=== PATIENT | male | born 1950 | race Caucasian/White ===

== ENCOUNTER 2020-07-06 07:16 | Day surgery (SDC) | payer OTHER ==
[2020-07-02 14:22] LABS: Absolute Lymphocytes (CBC) 1.4 K/uL (0.7-4.9); Basophils % 0.3 % (0-1.3); Lymphocytes % 12.6 % (15.3-44.8); MPV 7.2 fL (7.6-11.3); RBC Red Blood Cell Count 4.37 M/uL (4.33-5.43)
--- NOTE | 2020-07-02 14:31 | RAD REPORT ---
EXAM DESCRIPTION: RAD - Chest Pa And Lat (2 Views) - 07/02/2020 2:14 pm CLINICAL HISTORY: preop Chest pain. COMPARISON: Chest Pa And Lat (2 Views) dated 06/21/2017; Chest Single View dated 11/16/2016; Chest Sing le View dated 08/16/2016; CHEST SINGLE VIEW dated 03/12/2014 FINDINGS: The lungs are clear. The heart is normal in size. No displaced fractures. Sternotomy wires . IMPRESSION: No acute or concerning finding suspected.
[2020-07-02 14:35] LABS: Protime INR 1.04
[2020-07-02 14:36] LABS: Potassium 4.8 mmol/L (3.5-5.1)
[2020-07-06] MEDS ORDERED: NA CHLORIDE 0.9% 500 ML ONE (08:04)
[2020-07-06] MEDS ORDERED: HEPA 1000U/500MLS 2,000 UNIT/1,000 ML BAG IV ONE (08:16)
[2020-07-06] MEDS ORDERED: MIDAZOLAM HCL 2 MG/2 ML INJ ONE (08:16)
[2020-07-06] MEDS ORDERED: FENTANYL CITR 100 MCG/2 ML ONE (08:16)
[2020-07-06] MEDS ORDERED: HEPARIN 5000 UNIT/ML 1 ML VIAL ONE (08:16)
[2020-07-06 08:28] VITALS: TEMP 97
[2020-07-06 11:20] VITALS: O2SAT 97
[2020-07-06 11:21] VITALS: BP 143/75
--- NOTE | 2020-07-06 12:49 | OP ---
Date of Procedure: 07/06/2020 Surgeon: Carl Luna MD Blow Mold Machine Operator: Hilario Hernandes. The patient will remain in the hospital for 2 hours after his Angio-Seal for bedrest. I will see him in the office in the next 2 weeks. Reason For Admission: Abdominal angiogram with runoff. Indication: Claudication and abnormal right arterial Doppler. History Of Present Illness: Mr. Yoon is 70. Has hypertension, diabetes, and dyslipidemia, cl audication, known arterial Doppler that was abnormal 3 years ago, but he had elected to wait for an a ngiogram until his symptoms became more significant. Procedure In Detail: He came into the slab off mill tender today, 07/06/2020 as an outpatient, prepped and drape d in routine sterile fashion. Given Versed and fentanyl for sedation. A 6-Georgian sheath introduced in the right common femoral artery successfully. Angiography there locally showed a 60% to 70% commo n femoral artery stenosis. Angio-Seal was used to close the case. A pigtail catheter was advanced a seth the renals. Abdominal angiogram with runoff revealed patent renal arteries, normal aorta. He h ad a 60% to 70% right common iliac artery stenosis. He had 100% occlusion of both anterior tibial. His posterior tibial was patent bilaterally. Both of his peroneal arteries revealed severe moderate plaquing throughout. There were no complications. Blood Loss: 5 mL. Postoperative Diagnosis: Severe peripheral artery arterial disease below the knee. Plan: Plan is for medical therapy. I will consider low-dose Xarelto and maybe Trental and if his sy mptoms persist, I will send him to Dr. Eric in [place] for a possible vascular intervention below th e knee. NB/MODL Voice ID: [id number] Report ID: [id number]
== END 2020-07-06 11:08 | disposition home or self-care (01) ==
LOC: CCL 07:16
DX: I70.213 Atherosclerosis of native arteries of extremities with intermittent claudication, bilateral legs (principal); I70.92 Chronic total occlusion of artery of the extremities; I25.10 Atherosclerotic heart disease of native coronary artery without angina pectoris; I65.23 Occlusion and stenosis of bilateral carotid arteries; I10 Essential (primary) hypertension; E11.9 Type 2 diabetes mellitus without complications; E78.2 Mixed hyperlipidemia; Z95.1 Presence of aortocoronary bypass graft; Z95.5 Presence of coronary angioplasty implant and graft; Z87.891 Personal history of nicotine dependence; Z88.6 Allergy status to analgesic agent; Z88.8 Allergy status to other drugs, medicaments and biological substances; Z20.822 Contact with and (suspected) exposure to COVID-19; Z82.49 Family history of ischemic heart disease and other diseases of the circulatory system
CPT/HCPCS: 93005; 85025; 80048; 36415; 85610; 82947; 85730; 71046; 36200; 75630; U0003; C1893; C1760; J2250; J3010; J7040; J1644

== ENCOUNTER 2021-01-04 08:18 | Day surgery (SDC) | payer OTHER ==
[2020-12-30 16:15] LABS: Absolute Lymphocytes (CBC) 2.2 K/uL (0.7-4.9); Basophils % 0.9 % (0-1.3); Hematocrit 37.5 % (39.6-49.0); Lymphocytes % 23.9 % (15.3-44.8); MPV 6.4 fL (7.6-11.3); RBC Red Blood Cell Count 4.17 M/uL (4.33-5.43)
[2020-12-30 16:23] LABS: Protime INR 1.03
[2020-12-30 16:32] LABS: Potassium 3.7 mmol/L (3.5-5.1)
--- NOTE | 2020-12-30 16:36 | RAD REPORT ---
EXAM DESCRIPTION: RAD - Chest Pa And Lat (2 Views) - 12/30/2020 4:28 pm CLINICAL HISTORY: Pre Op pending stent placement Chest pain. COMPARISON: Chest Pa And Lat (2 Views) dated 07/02/2020; Chest Pa And Lat (2 Views) dated 06/21/2017; C hest Single View dated 11/16/2016; Chest Single View dated 08/16/2016 FINDINGS: The lungs are emphysematous with notable only in the right apex. The heart is normal in si ze. Changes of prior CABG noted. IMPRESSION: Moderate COPD. The USPSTF recommends annual screening for lung cancer with low-dose CT (LDCT) in adults aged 50 to 8 0 years who have a 20 pack-year smoking history and currently smoke or have quit within the past 15 y ears.
--- NOTE | 2021-01-01 20:42 | EKG ---
Test Date: 2020-12-30 Test Time: 15:58:03 Contracting Officer: ANDERSON MEASUREMENT RESULTS: Intervals: Rate: 78 MT: 138 QRSD: 74 QT: 374 QTc: 426 [place]: P: 72 MT: 138 QRS: 76 T: 58 INTERPRETIVE STATEMENTS: Normal sinus rhythm Normal ECG Compared to ECG 07/02/2020 12:56:06 No significant changes Electronically Signed On 01-01-21 20:35:41 FOOD RUNNER by Carl Luna
[~2021-01-04 08:18] MED LIST: NA CHLORIDE 0.9% 500 ML ONE
[2021-01-04] MEDS ORDERED: HEPA 1000U/500MLS 2,000 UNIT/1,000 ML BAG IV ONE (08:35)
[2021-01-04 09:05] VITALS: TEMP 97.9
[2021-01-04] MEDS ORDERED: FENTANYL CITR 100 MCG/2 ML ONE (10:18)
[2021-01-04] MEDS ORDERED: HEPARIN 5000 UNIT/ML 1 ML VIAL ONE (10:18)
[2021-01-04] MEDS ORDERED: MIDAZOLAM HCL 2 MG/2 ML INJ ONE ×2 (10:18→10:40)
[2021-01-04] MEDS ORDERED: ATROPINE SULF 1 MG/10 ML SYR IV ONE (10:18)
[2021-01-04] MEDS ORDERED: CLOPIDOGREL 75 MG TABLET ONE (11:05)
--- NOTE | 2021-01-04 11:40 | OP ---
Surgeon: Carl Luna MD Senior Linux Unix Engineer: Mr. Keita. Reason For Admission: Right common iliac artery angiogram with primary stent of the external iliac a rtery and common femoral artery on the right. Mr. Yoon has had a history of CABG, peripheral arterial disease, worsening claudication on the right. Procedure In Detail: Brought into the quality assurance/r&d lab technician as an outpatient, prepped and draped in the routine s terile fashion. Given Versed and fentanyl for sedation. A 7-Kyrgyz sheath introduced in the right c ommon femoral artery successfully using the Seldinger technique and 10 cc of Xylocaine. A Wholey wir e was used to cross the lesion successfully. Following that, 2 stents were placed. The angiography showed an 80% stenosis of the right external iliac and common femoral artery on the right. This sten t was 6 x 19 Omnilink stent balloon expandable that were overlapped from the common femora l artery all the way up to the external iliac artery just past the internal iliac artery bifurcation, 0% residual. No complications. Blood Loss: 5 cc. Anesthesia: Total conscious sedation 45 minutes. Postoperative Diagnosis: Peripheral arterial disease, status post successful primary stent of the ri ght external iliac artery and common femoral artery. Plan: Plan is for medical therapy. He is on Plavix. He is on statin. He will stay in the hospital for 2 hours after bedrest. He got an Angio-Seal after the angiography of the groin. He will be here for 2 hours of bedrest, go chelsie e, see me in the office in 2 weeks. JOSE/[place] Voice ID: [id number] Report ID: [id number]
[2021-01-04 14:47] VITALS: BP 139/76; O2SAT 95
== END 2021-01-04 15:25 | disposition home or self-care (01) ==
LOC: CCL 08:18
PROC: 04HH3DZ Insertion of Intraluminal Device into Right External Iliac Artery, Percutaneous Approach (ICD-10-PCS; principal; 2021-01-04)
PROC: 04HK3DZ Insertion of Intraluminal Device into Right Femoral Artery, Percutaneous Approach (ICD-10-PCS; 2021-01-04)
DX: I70.201 Unspecified atherosclerosis of native arteries of extremities, right leg (principal); I25.10 Atherosclerotic heart disease of native coronary artery without angina pectoris; I65.23 Occlusion and stenosis of bilateral carotid arteries; I10 Essential (primary) hypertension; E78.2 Mixed hyperlipidemia; E11.9 Type 2 diabetes mellitus without complications; R09.89 Other specified symptoms and signs involving the circulatory and respiratory systems; Z95.1 Presence of aortocoronary bypass graft; Z95.5 Presence of coronary angioplasty implant and graft; Z87.891 Personal history of nicotine dependence; Z79.02 Long term (current) use of antithrombotics/antiplatelets; Z79.82 Long term (current) use of aspirin; Z88.6 Allergy status to analgesic agent; Z88.8 Allergy status to other drugs, medicaments and biological substances; Z20.822 Contact with and (suspected) exposure to COVID-19; Z82.49 Family history of ischemic heart disease and other diseases of the circulatory system
CPT/HCPCS: 93005; 85025; 80048; 36415; 85610; 82947; 85347 ×2; 85730; 71046; 37226; 37221; U0002; C1893; C1760; C1725; J1644 ×2; J2250 ×2; J3010; J7040

== ENCOUNTER 2022-05-11 22:30 | Observation (INO) | payer OTHER ==
--- OUTSIDE RECORDS SUMMARY | 2022-05-11 22:35 | XMS REPORT | Continuity of Care Document ---
:1950 Author Organization [facility] t Address [address] [facility] [place] [address] Care Team Providers Name Role Phone ENOC DOIZER Primary Care Physician Unavailable Lab, Adc Fam Pob I Attending Clinician Unavailable Julianne Cuellar Attending Clinician JULIANNE MONGE Attending Clinician Unavailable Yovani Eric MD Attending Clinician 3, Mague Attending Clinician Unavailable Rufino Dumont MD Attending Clinician DELMY RODRIGUEZ Attending Clinician Unavailable DELMY RODRIGUEZ Admitting Clinician Unavailable Payers Payer Name Policy Type Policy Number Effective Date Expiration Date S ource [employer] [id number] 2020 00:00:00 Problems Condition Condition Condition Status Onset Resolution Last Treating Co mments Source Name Details Category Date Date Treatment Clinician Date Pseudophak Pseudophak Disease Active B aline ia, both ia, both 10-10 Colleg e eyes eyes 00:00: of 00 Medicin e S/P CABG x S/P CABG x Disease Active B aline 3 3 7-30 College 00:00: of 00 Medicin e Postoperat Postoperat Disease Active [facility]awana anemia tawana anemia 11-18 Laura kes due to due to 00:00: Medical acute acute 00 Center blood loss blood loss Hyperglyce Hyperglyce Disease Active [facility] cal[facility] calvin 11[facility]18 [facility] Hypertensi Hypertensi Disease Active [facility] on, on, 9-28 [facility] essential essential 00:00: Medi sarath 00 Center Hyperlipid Hyperlipid Disease Active [facility] emia emia 11-17 [facility] Center H/O stroke H/O stroke Disease Active [facility] without without 11-17 [facility] residual residual 00:00: Medica l deficits deficits 00 Center HENRY HENRY Disease Active [facility] (obstructi (obstructi 11-17 Laura kes ve sleep ve sleep 00:00: Medica l apnea) apnea) 00 Center Acute Acute Disease Active [facility] pulmonary pulmonary 11-17 [facility] s insufficie insufficie 00:00: Me dical ncy ncy 00 Center following following thoracic thoracic surgery surgery Controlled Controlled Disease Recurre [facility] type 2 type 2 nce 11-17 [facility] diabetes diabetes 00:00: Medica l mellitus mellitus 00 Center with with qa test analyst qa test analyst y y disorder, disorder, without without long-term long-term current current use of use of insulin insulin CAD in CAD in Disease Active [facility] [place] 11-16 [facility] artery artery 00:00: Medical 00 Center OAG (open OAG (open Disease Active [facility] angle angle [address] [place] glaucoma) glaucoma) 00:00: of suspect, suspect, 00 Medici n high risk, high risk, e bilateral bilateral 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 [facility] gland gland 1-23 [place] dysfunctio dysfunctio 00:00: of n (MGD), n (MGD), 00 Medici n bilateral, bilateral, e both upper both upper and lower and lower lids lids Pseudophak Pseudophak Disease Active [facility] ia, right ia, right 09-17 Alejandra ege eye eye 00:00: of Medicin e Pseudophak Pseudophak Disease Active [facility] ia, left ia, left 08-20 Colleg e eye eye 00:00: of 00 Medicin e 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 6-08 [place] cupping cupping 00:00: of 00 Medicin e Allergies, Adverse Reactions, Alerts Allergy Allergy Status Severity Reaction(s) Onset Inactive Treating Comm ents Source Name Type Date Date Clinician Lisinopr Propensi Active Other (See Coughing [facility] il ty to Comments) 08-16 College adverse 00:00: of reaction 00 Medicin s to e drug COLLAGEN DRUG Active Unknown-Cmnt Un orxy INGREDI 06-13 ity of 00:00: [place] 00 [facility] Collagen Propensi Active Unknown - Uni vers ty to See comments 06-13 ity of adverse 00:00: [place] reaction 00 Medical s Branch Potassiu Propensi Active [facility] m Cocoyl ty to 06-13 College Hydrolyz adverse 00:00: of ed reaction 00 Medicin Collagen s to e drug NO KNOWN Allergy Active [facility] Social History Social Habit Start Date Stop Date Quantity Comments Source Exposure to Yes University of SARS-CoV-2 (event) [facility] Tobacco use and 2019-10-11 2019-10-11 Never used [facility] Co llege of exposure 00:00:00 00:00:00 Medicine Cigarettes smoked 2019-10-11 2019-10-11 [facility] of current (pack per 00:00:00 00:00:00 Medicin e day) - Reported Alcohol intake 2016-11-29 2016-11-29 Current [facility] Roque es 00:00:00 00:00:00 non-drinker of Medical Ce nter alcohol (finding) Cigarette 2014-06-13 2014-06-13 University of pack-years 00:00:00 00:00:00 [facility] History of tobacco 1988-02-21 Cigarette Smoker [facility] of use 00:00:00 Medicine Sex [birth year] [facility] St Laura diazs 00:00:00 00:00:00 [facility] Center Smoking Status Start Date Stop Date Source Former smoker 2019-10-11 00:00:00 2019-10-11 00:00:00 [facility] olradha of Medicine Medications Ordered Filled Start Stop Current Ordering Indication Dosage Frequency Signature Comments Components Source Medication Medication Date Date Medication? Clinician (SIG) Name Name Nutritional Yes Take by [facility] Supplements 10-10 mouth. Colleg e (VITAMIN D 20:51: of BOOSTER OR) 25 Medicin e Calcium Yes Take by [facility] Carb-Cholec 10-10 mouth. Colleg e alciferol 20:51: of (CALCIUM 25 Medicin 1000 + D) e 1000-800 MG-UNIT TABS Calcium 200 2020-0 Yes Take by [place] maurice MG TABS 8-21 mouth. College 20:51: of 25 Medicin e metformin 2020-0 Yes 1000mg Take 1,000 [facility] (GLUCOPHAGE 2-26 mg by [place] ) 1000 MG 17:06: mouth 2 of tablet 04 times Medicin daily e (with meals). clopidogrel 2020-0 Yes 75mg Take 75 mg Fausto (PLAVIX) 75 2-26 by mouth Alejandra ege MG tablet 17:06: daily. of 04 Medicin e aspirin 81 2020-0 Yes 81mg Take 81 mg [facility] MG tablet 2-26 by mouth Colleg e 17:06: daily. of Medicin e Icosapent 2020-0 Yes 2g Take 2 g [facility] or Ethyl 2-26 by mouth [facility] [facility] 1 17:06: two times o f g CAPS 04 daily. Medicin e metformin 2020-0 Yes 1000mg Take 1,000 [facility] (GLUCOPHAGE 2-26 mg by [place] ) 1000 MG 17:06: mouth 2 of tablet 04 times Medicin daily e (with meals). clopidogrel 2020-0 Yes 75mg Take 75 mg [facility] (PLAVIX) 75 2-26 by mouth Alejandra ege MG tablet 17:06: daily. of 04 Medicin e aspirin 81 2020-0 Yes 81mg Take 81 mg [facility] MG tablet 2-26 by mouth Colleg e 17:06: daily. of 04 Medicin e Icosapent 2020-0 Yes 2g Take 2 g [place] or Ethyl 2-26 by mouth [place] ([facility]) 1 17:06: two times o f g CAPS 04 daily. Medicin e metoprolol 2018-0 Yes [facility] (TOPROL-XL) 6-26 College 50 MG XL 00:00: of tablet 00 Medicin e metoprolol 2018-0 Yes [facility] (TOPROL-XL) 6-26 [place] 50 MG XL 00:00: of tablet 00 Medicin e atorvastati 2017-0 Yes [facility] n (LIPITOR) 6-15 College 40 MG 00:00: of tablet 00 Medicin e amlodipine 2018-0 Yes [facility] (NORVASC) 5 6-15 College MG tablet 00:00: of 00 Medicin e atorvastati Yes [facility] n (LIPITOR) 6-15 College 40 MG 00:00: of tablet 00 Medicin e amlodipine Yes [facility] (NORVASC) 5 6-15 College MG tablet 00:00: of 00 Medicin e sulfamethox 2016-02 Yes Post-operat 1{tbl} Q.5D Take [address] azole-trime 0-10 [place] [facility] tablet by [facility] thoprim 14:05: mouth 2 Medical (BACTRIM 50 (two) Center DS) 800-160 times mg per daily. tablet acetaminoph 2016-02 Yes Post-operat 500mg Take [address] en 0-10 [place] [facility] mg by [facility] (TYLENOL) 14:05: mouth Medical 500 MG 50 every 6 Center tablet (six) hours as needed for Pain. metFORMIN 2016-02 Yes 1000mg Take 1,[address] (GLUCOPHAGE 0-10 mg by [facility] ) 1000 MG 11:26: mouth 2 Medic al tablet 21 (two) Center times daily with breakfast and dinner. aspirin 81 2016-02 Yes 81mg QD Take [address] MG EC 0-10 by mouth [facility] tablet 11:26: daily. [address] valsartan Yes 160mg Take 160 Uni vers (DIOVAN) 4-26 mg by ity of 160 mg 20:03: mouth [place] tablet 24 daily. Medical Branch metFORMIN Yes 1000mg Take 1,000 Univers (GLUCOPHAGE 4-26 mg by ity of ) 1,000 mg 20:03: mouth [place] tablet 24 (two) Medical times Branch daily with meals. clopidogrel Yes 75mg Take 75 mg Univers (PLAVIX) 75 4-26 by mouth ity of mg tablet 20:03: daily. [address] Branch aspirin 81 Yes 81mg Take 81 mg U nivers mg chewable 4-26 by mouth ity of tablet 20:03: daily. [address] Branch atorvastati Yes 20mg Take 20 mg Univers n (LIPITOR) 4-26 by mouth ity of 20 mg 20:03: at [place] tablet 24 bedtime. Medical Branch metoprolol Yes 75mg Take 1.5 Uni vers tartrate 4-26 Tabs by ity of (LOPRESSOR) 00:00: mouth 2 David as 50 mg 00 (two) Medical tablet times Branch daily. Immunizations Ordered Immunization Filled Immunization Date Status Commen ts Source Name Name Influenza Three-TIV 2016-11-21 Completed HIMANSHU Graham PF 5+ YR 00:00:00 Medical Center Procedures Procedure Date / Time Performed Performing Clinician Ramona shipley OCT, OPTIC NERVE - OU 2019-10-11 20:39:28 Yovani Eric [facility] BOTH EYES Medicine Plan of Care Planned Activity Planned Date Details Comments Source Future Scheduled Test COLON CANCER SCREENING: [facility] COLONOSCOPY [code = Medicine COLON CANCER SCREENING: COLONOSCOPY] Future Scheduled Test TETANUS SHOT (ADULT) [facility] [code = TETANUS SHOT Medicin e (ADULT)] Future Scheduled Test HEPATITIS C SCREENING [facility] [code = HEPATITIS C Medicine SCREENING] Future Scheduled Test AAA Screen [code = AAA [facility] Screen] Medicine Future Scheduled Test FALL SCREEN [code = [facility] FALL SCREEN] Medicine Future Scheduled Test PNEUMOVAX >=65 (PPSV23) [facility] [code = PNEUMOVAX >=65 Medic ine (PPSV23)] Future Scheduled Test PREVNAR >= 65 (PCV13) [facility] [code = PREVNAR >= 65 Medici ne (PCV13)] Future Scheduled Test FLU VACCINE > 6 MONTHS [facility] [code = FLU VACCINE > 6 Medi cine MONTHS] Future Scheduled Test [facility] TO [facility]ARE) [code = Medicin e MEDICARE IPPE ([facility] Future Scheduled Test COLON CANCER SCREENING: [facility] COLONOSCOPY [code = Medicine COLON CANCER SCREENING: COLONOSCOPY] Future Scheduled Test TETANUS SHOT (ADULT) [facility] [code = TETANUS SHOT Medicin e (ADULT)] Future Scheduled Test HEPATITIS C SCREENING [facility] [code = HEPATITIS C Medicine SCREENING] Future Scheduled Test ZOSTER VACCINE (1 of 2) [facility] [code = ZOSTER VACCINE Medic ine (1 of 2)] Future Scheduled Test AAA Screen [code = AAA [facility] Screen] Medicine Future Scheduled Test FALL SCREEN [code = [facility] FALL SCREEN] Medicine Future Scheduled Test PNEUMOVAX >=65 (PPSV23) [facility] [code = PNEUMOVAX >=65 Medic ine (PPSV23)] Future Scheduled Test MEDICARE AWV (Initial) [facility] [code = MEDICARE AWV Medicin e (Initial)] Future Scheduled Test FLU VACCINE > 6 MONTHS [facility] [code = FLU VACCINE > 6 Medi cine MONTHS] Encounters Start End Encounter Admission Attending Care Care Encounter Source Date/Time Date/Time Type Type Clinicians Facility Department ID 2020-03-01 2020-03-01 Laboratory Lab, Adc Fam Pob I [facility] 1.2. [id number] Univers 11:10:18 11:25:18 Only Julianne Monge [facility] [id number] [facility] [id number] David as Professio [phone] [address] Office [facility] 2020-03-01 2020-03-[address] [facility] [id number] Univers 11:20:00 11:20:00 [id number] [facility] 2020-03-01 2020-03-[address] [facility] [id number] Univers 11:20:00 11:20:00 [facility] 2019-10-11 2019-10-11 Office Yovani Eric [facility] 1.2.8 [id number] [facility] 15:07:38 15:32:38 Visit 3, Ods AMBULATOR [id number] College Y 0.2.7.2.686 of [id number] [facility] valorie 300 e 2019-10-11 2019-10-11 Office Yovani Eric 1.2.8 [id number] 15:07:38 15:32:38 Visit 3, Ods AMBULATOR [id number] Y [id number] [id number] 300 2019-04-17 2019-04-17 Office NEVILLE Dumont [id number] [facility] 10:26:44 10:31:44 Visit Rufino P AMBULATOR [id number] College Y 0.2.7.2.686 of [id number] Medi valorie 300 e 2019-04-17 2019-04-17 Office NEVILLE Dumont [id number] [facility] 10:26:44 10:31:44 Visit Rufino P AMBULATOR [id number] Y [id number] [id number] 300 Results Test Description Test Time Test Comments Results Result [facility] e Comments OCT, OPTIC NERVE 2019-10-11 OCT Glaucoma [facility] - OU - BOTH EYES 21:02:07 Interpretation OD C ollege of OS Quality Good Medicine Good Interpretation Thin inferior pole, mild Thin inferior pole Change Very Stable Very Stable OCCULT BLOOD, STOOL 2016-11-23 17:12:00 Test Item Value Reference Range Interpretation Comme nts FECAL OCCULT BLOOD (BEAKER) (test code = 618) Negative Negative POCT-GLUCOSE [id number] 12:23:00 Test Item Value Reference Range Interpretation Comments POC-GLUCOSE METER 195 mg/dL 70-110 H TESTED AT [facility] 6720 (BEAKER) (test code = BRITTANEY Flavio [place] 1538) [id number] URINALYSIS W/ [id number] 09:51:00 Test Item Value Reference Range Interpretation Comments COLOR (BEAKER) (test code Light Yellow = 470) CLARITY (BEAKER) (test Hazy code = 469) SPECIFIC GRAVITY UA 1.011 1.001-1.035 (BEAKER) (test code = 468) PH UA (BEAKER) (test code 6.5 5.0-8.0 = 467) PROTEIN UA (BEAKER) (test 20 mg/dL Negative A code = 464) GLUCOSE UA (BEAKER) (test Negative Negative code = 365) KETONES UA (BEAKER) (test Negative Negative code = 371) BILIRUBIN UA (BEAKER) Negative Negative (test code = 462) BLOOD UA (BEAKER) (test Moderate Negative A code = 461) NITRITE UA (BEAKER) (test Negative Negative code = 465) LEUKOCYTE ESTERASE UA Large Negative A (BEAKER) (test code = 466) UROBILINOGEN UA (BEAKER) 2.0 mg/dL 0.2-1.0 H (test code = 463) RBC UA (BEAKER) (test code 2 /HPF = 519) WBC UA (BEAKER) (test code 153 /HPF = 520) SOURCE(BEAKER) (test code Urine, Clean Catch = 9999) [id number] 09:15:00 Test Item Value Reference Range Interpretation Comments HEMOGLOBIN (BEAKER) (test code = 10.7 GM/DL 13.7-17.5 L 410) POCT-GLUCOSE [id number] 08:16:00 Test Item Value Reference Range Interpretation Comments POC-GLUCOSE METER 109 mg/dL 70-110 TESTED AT [facility] 6720 (BEAKER) (test code = BRITTANEY [place] 1538) [id number] 05:53:00 Test Item Value Reference Range Interpretation Comments MAGNESIUM (BEAKER) (test code = 2.1 mg/dL 1.6-2.6 627) BASIC METABOLIC [id number] 05:53:00 Test Item Value Reference Range Interpretation Comments SODIUM (BEAKER) 139 meq/L 136-145 (test code = 381) POTASSIUM (BEAKER) 4.1 meq/L 3.5-5.1 (test code = 379) CHLORIDE (BEAKER) 107 meq/L 98-107 (test code = 382) CO2 (BEAKER) (test 27 meq/L 22-29 code = 355) BLOOD UREA NITROGEN 20 mg/dL 7-21 (BEAKER) (test code = 354) CREATININE (BEAKER) 1.24 mg/dL 0.57-1.25 (test code = 358) GLUCOSE RANDOM 111 mg/dL 70-105 H (BEAKER) (test code = 652) CALCIUM (BEAKER) 8.5 mg/dL 8.4-10.2 (test code = 697) EGFR (BEAKER) (test 59 mL/min/1.73 ESTIMA SATURNINO GFR IS code = 1092) sq m NOT ACCURATE CREATININE CLEARANCE IN PREDICTING GLOMERULAR FILTRATION RATE . ESTIMATED GFR I S NOT APPLICABLE FOR DIALYSIS PATIEN TS. CBC W/PLT COUNT & AUTO [id number] 05:48:00 Test Item Value Reference Range Interpretation Comments WHITE BLOOD CELL COUNT (BEAKER) 7.7 K/ L 3.5-10.5 (test code = 775) RED BLOOD CELL COUNT (BEAKER) 2.51 M/ L 4.63-6.08 L (test code = 761) HEMOGLOBIN (BEAKER) (test code = 7.6 GM/DL 13.7-17.5 L 410) HEMATOCRIT (BEAKER) (test code = 22.7 % 40.1-51.0 L 411) MEAN CORPUSCULAR VOLUME (BEAKER) 90.4 fL 79.0-92.2 (test code = 753) MEAN CORPUSCULAR HEMOGLOBIN 30.3 pg 25.7-32.2 (BEAKER) (test code = 751) MEAN CORPUSCULAR HEMOGLOBIN CONC 33.5 GM/DL 32.3-36.5 (BEAKER) (test code = 752) RED CELL DISTRIBUTION WIDTH 14.1 % 11.6-14.4 (BEAKER) (test code = 412) PLATELET COUNT (BEAKER) (test 220 K/CU MM 150-450 code = 756) MEAN PLATELET VOLUME (BEAKER) 9.0 fL 9.4-12.4 L (test code = 754) NUCLEATED RED BLOOD CELLS 0 /100 WBC 0-0 (BEAKER) (test code = 413) NEUTROPHILS RELATIVE PERCENT 73 % (BEAKER) (test code = 429) LYMPHOCYTES RELATIVE PERCENT 9 % (BEAKER) (test code = 430) MONOCYTES RELATIVE PERCENT 15 % (BEAKER) (test code = 431) EOSINOPHILS RELATIVE PERCENT 1 % (BEAKER) (test code = 432) BASOPHILS RELATIVE PERCENT 0 % (BEAKER) (test code = 437) NEUTROPHILS ABSOLUTE COUNT 5.61 K/ L 1.78-5.38 H (BEAKER) (test code = 670) LYMPHOCYTES ABSOLUTE COUNT 0.72 K/ L 1.32-3.57 L (BEAKER) (test code = 414) MONOCYTES ABSOLUTE COUNT (BEAKER) 1.13 K/ L 0.30-0.82 H (test code = 415) EOSINOPHILS ABSOLUTE COUNT 0.10 K/ L 0.04-0.54 (BEAKER) (test code = 416) BASOPHILS ABSOLUTE COUNT (BEAKER) 0.03 K/ L 0.01-0.08 (test code = 417) IMMATURE GRANULOCYTES-RELATIVE 1 % 0-1 PERCENT (BEAKER) (test code = 2806) POCT-GLUCOSE [id number] 22:02:00 Test Item Value Reference Range Interpretation Comments POC-GLUCOSE METER 147 mg/dL 70-110 H TESTED AT [facility] 67 ([facility]) (test code = BRITTANEY [place] 1538) [id number] POCT-GLUCOSE [id number] 18:23:00 Test Item Value Reference Range Interpretation Comments POC-GLUCOSE METER 109 mg/dL 70-110 TESTED AT [place] [id number] (ROBEL) (test code = BRITTANEY Muniz [facility] 1538) [id number] U/S, RENAL, [id number] 17:15:00Reason for exam:->hematuriaFINAL REPORT Ultrasound of the Kidneys, 11/22/2016. Clinical History: Hematuria.Discussion:Sonographic evaluation of the kidneys is performed. Right kidney: 9.6 cm in length, normal in size, with cortical thickness of 1.3 cm. Normal cortical echogenicity. An oval anechoic structure is seen arising from the upper pole measuring 0.7 x 0.6 x 0.6 cm. No mass. No shadowing calculus. No hydronephrosis. Left kidney: 9.5 cm in length, normal in size, with cortical thickness of 1.6 cm. Normal cortical echogenicity. No mass. No shadowing calculus. No hydronephrosis. Limited Doppler evaluation demonstrates normal color Doppler flow within bilateral renal pj. Fluid: No perinephric fluid. Bladder: Unremarkable. IMPRESSION:Small right renal cyst. Otherwise unremarkable kidneys. No evidence of hydronephrosis or nephrolithiasis. Signed: Ministerio Sadler MDReport Verified Date/Time: 11/22/2016 17:15:46 Reading Location: [address] Ultrasound Reading Room POCT-GLUCOSE METER 2016-11-22 12:31:00 Test Item Value Reference Range Interpretation Comments POC-GLUCOSE METER 227 mg/dL 70-110 H TESTED AT [facility] 67 ([facility]) (test code = BRITTANEY Flavio [facility] 1538) [id number] POCT-GLUCOSE [id number] 08:11:00 Test Item Value Reference Range Interpretation Comments POC-GLUCOSE METER 119 mg/dL 70-110 H TESTED AT [facility] 6720 ([facility]) (test code = BRITTANEY Muniz [facility] 1538) [id number] 07:36:00 Test Item Value Reference Range Interpretation Comments MAGNESIUM (BEAKER) (test code = 2.3 mg/dL 1.6-2.6 627) BASIC METABOLIC [id number] 07:36:00 Test Item Value Reference Range Interpretation Comments SODIUM (BEAKER) 138 meq/L 136-145 (test code = 381) POTASSIUM (BEAKER) 4.0 meq/L 3.5-5.1 (test code = 379) CHLORIDE (BEAKER) 105 meq/L 98-107 (test code = 382) CO2 (BEAKER) (test 26 meq/L 22-29 code = 355) BLOOD UREA NITROGEN 19 mg/dL 7-21 (BEAKER) (test code = 354) CREATININE (BEAKER) 1.26 mg/dL 0.57-1.25 H (test code = 358) GLUCOSE RANDOM 98 mg/dL 70-105 (BEAKER) (test code = 652) CALCIUM (BEAKER) 9.0 mg/dL 8.4-10.2 (test code = 697) EGFR (BEAKER) (test 58 mL/min/1.73 ESTIMA SATURNINO GFR IS code = 1092) sq m NOT ACCURATE CREATININE CLEARANCE IN PREDICTING GLOMERULAR FILTRATION RATE . ESTIMATED GFR I S NOT APPLICABLE FOR DIALYSIS PATIEN TS. CBC W/PLT COUNT & AUTO [id number] 07:23:00 Test Item Value Reference Range Interpretation Comments WHITE BLOOD CELL COUNT (BEAKER) 8.6 K/ L 3.5-10.5 (test code = 775) RED BLOOD CELL COUNT (BEAKER) 3.40 M/ L 4.63-6.08 L (test code = 761) HEMOGLOBIN (BEAKER) (test code = 10.4 GM/DL 13.7-17.5 L 410) HEMATOCRIT (BEAKER) (test code = 30.7 % 40.1-51.0 L 411) MEAN CORPUSCULAR VOLUME (BEAKER) 90.3 fL 79.0-92.2 (test code = 753) MEAN CORPUSCULAR HEMOGLOBIN 30.6 pg 25.7-32.2 (BEAKER) (test code = 751) MEAN CORPUSCULAR HEMOGLOBIN CONC 33.9 GM/DL 32.3-36.5 (BEAKER) (test code = 752) RED CELL DISTRIBUTION WIDTH 14.5 % 11.6-14.4 H (BEAKER) (test code = 412) PLATELET COUNT (BEAKER) (test 231 K/CU MM 150-450 code = 756) MEAN PLATELET VOLUME (BEAKER) 9.2 fL 9.4-12.4 L (test code = 754) NUCLEATED RED BLOOD CELLS 0 /100 WBC 0-0 (BEAKER) (test code = 413) NEUTROPHILS RELATIVE PERCENT 75 % (BEAKER) (test code = 429) LYMPHOCYTES RELATIVE PERCENT 9 % (BEAKER) (test code = 430) MONOCYTES RELATIVE PERCENT 13 % (BEAKER) (test code = 431) EOSINOPHILS RELATIVE PERCENT 2 % (BEAKER) (test code = 432) BASOPHILS RELATIVE PERCENT 1 % (BEAKER) (test code = 437) NEUTROPHILS ABSOLUTE COUNT 6.50 K/ L 1.78-5.38 H (BEAKER) (test code = 670) LYMPHOCYTES ABSOLUTE COUNT 0.79 K/ L 1.32-3.57 L (BEAKER) (test code = 414) MONOCYTES ABSOLUTE COUNT (BEAKER) 1.11 K/ L 0.30-0.82 H (test code = 415) EOSINOPHILS ABSOLUTE COUNT 0.16 K/ L 0.04-0.54 (BEAKER) (test code = 416) BASOPHILS ABSOLUTE COUNT (BEAKER) 0.04 K/ L 0.01-0.08 (test code = 417) IMMATURE GRANULOCYTES-RELATIVE 1 % 0-1 PERCENT (BEAKER) (test code = 2801) POCT-GLUCOSE [id number] 23:04:00 Test Item Value Reference Range Interpretation Comments POC-GLUCOSE METER 174 mg/dL 70-110 H TESTED AT [facility] 6720 (BEAKER) (test code = BRITT[place] 1538) [id number] URINALYSIS W/ REFLEX URINE [id number] 21:51:00 Test Item Value Reference Range Interpretation Comments COLOR (BEAKER) (test code = 470) Yellow CLARITY (BEAKER) (test code = 469) Cloudy SPECIFIC GRAVITY UA (BEAKER) (test 1.013 1.001-1.035 code = 468) PH UA (BEAKER) (test code = 467) 5.5 5.0-8.0 PROTEIN UA (BEAKER) (test code = 50 mg/dL Negative A 464) GLUCOSE UA (BEAKER) (test code = Negative Negative 365) KETONES UA (BEAKER) (test code = 20 mg/dL Negative A 371) BILIRUBIN UA (BEAKER) (test code = Negative Negative 462) BLOOD UA (BEAKER) (test code = 461) Large Negative A NITRITE UA (BEAKER) (test code = Positive Negative A 465) LEUKOCYTE ESTERASE UA (BEAKER) Large Negative A (test code = 466) UROBILINOGEN UA (BEAKER) (test code 2.0 mg/dL 0.2-1.0 H = 463) RBC UA (BEAKER) (test code = 519) 156 /HPF WBC UA (BEAKER) (test code = 520) > /HPF SOURCE(BEAKER) (test code = 2795) POCT-GLUCOSE [id number] 17:32:00 Test Item Value Reference Range Interpretation Comments POC-GLUCOSE METER 152 mg/dL 70-110 H TESTED AT [place] [address] (BEAKER) (test code = [facility] 1538) [id number] POCT-GLUCOSE [id number] 12:21:00 Test Item Value Reference Range Interpretation Comments POC-GLUCOSE METER 133 mg/dL 70-110 H TESTED AT [place] [address] ([facility]) (test code = [facility] 1538) [address] POCT-GLUCOSE [id number] 07:57:00 Test Item Value Reference Range Interpretation Comments POC-GLUCOSE METER 113 mg/dL 70-110 H TESTED AT [place] [address] ([facility]) (test code = [facility] 1538) [address] CBC W/PLT COUNT & AUTO [id number] 07:26:00 Test Item Value Reference Range Interpretation Comments WHITE BLOOD CELL COUNT (BEAKER) 9.4 K/ L 3.5-10.5 (test code = 775) RED BLOOD CELL COUNT (BEAKER) 3.28 M/ L 4.63-6.08 L (test code = 761) HEMOGLOBIN (BEAKER) (test code = 9.9 GM/DL 13.7-17.5 L 410) HEMATOCRIT (BEAKER) (test code = 29.6 % 40.1-51.0 L 411) MEAN CORPUSCULAR VOLUME (BEAKER) 90.2 fL 79.0-92.2 (test code = 753) MEAN CORPUSCULAR HEMOGLOBIN 30.2 pg 25.7-32.2 (BEAKER) (test code = 751) MEAN CORPUSCULAR HEMOGLOBIN CONC 33.4 GM/DL 32.3-36.5 (BEAKER) (test code = 752) RED CELL DISTRIBUTION WIDTH 14.6 % 11.6-14.4 H (BEAKER) (test code = 412) PLATELET COUNT (BEAKER) (test 200 K/CU MM 150-450 code = 756) MEAN PLATELET VOLUME (BEAKER) 9.5 fL 9.4-12.4 (test code = 754) NUCLEATED RED BLOOD CELLS 0 /100 WBC 0-0 (BEAKER) (test code = 413) NEUTROPHILS RELATIVE PERCENT 81 % (BEAKER) (test code = 429) LYMPHOCYTES RELATIVE PERCENT 7 % (BEAKER) (test code = 430) MONOCYTES RELATIVE PERCENT 10 % (BEAKER) (test code = 431) EOSINOPHILS RELATIVE PERCENT 2 % (BEAKER) (test code = 432) BASOPHILS RELATIVE PERCENT 0 % (BEAKER) (test code = 437) NEUTROPHILS ABSOLUTE COUNT 7.63 K/ L 1.78-5.38 H (BEAKER) (test code = 670) LYMPHOCYTES ABSOLUTE COUNT 0.67 K/ L 1.32-3.57 L (BEAKER) (test code = 414) MONOCYTES ABSOLUTE COUNT (BEAKER) 0.92 K/ L 0.30-0.82 H (test code = 415) EOSINOPHILS ABSOLUTE COUNT 0.14 K/ L 0.04-0.54 (BEAKER) (test code = 416) BASOPHILS ABSOLUTE COUNT (BEAKER) 0.04 K/ L 0.01-0.08 (test code = 417) IMMATURE GRANULOCYTES-RELATIVE 0 % 0-1 PERCENT (BEAKER) (test code = 2801) [id number] 07:17:00 Test Item Value Reference Range Interpretation Comments MAGNESIUM (BEAKER) (test code = 2.0 mg/dL 1.6-2.6 627) BASIC METABOLIC [id number] 07:17:00 Test Item Value Reference Range Interpretation Comments SODIUM (BEAKER) 137 meq/L 136-145 (test code = 381) POTASSIUM (BEAKER) 4.2 meq/L 3.5-5.1 (test code = 379) CHLORIDE (BEAKER) 106 meq/L 98-107 (test code = 382) CO2 (BEAKER) (test 24 meq/L 22-29 code = 355) BLOOD UREA NITROGEN 21 mg/dL 7-21 (BEAKER) (test code = 354) CREATININE (BEAKER) 1.25 mg/dL 0.57-1.25 (test code = 358) GLUCOSE RANDOM 103 mg/dL 70-105 ([facility]) (test code = 652) CALCIUM ([facility]) 8.6 mg/dL 8.4-10.2 (test code = 697) EGFR ([facility]) (test 58 mL/min/1.73 ESTIMA SATURNINO GFR IS code = 1092) sq m NOT ACCURATE CREATININE CLEARANCE IN PREDICTING GLOMERULAR FILTRATION RATE . ESTIMATED GFR I S NOT APPLICABLE FOR DIALYSIS PATIEN TS. POCT-GLUCOSE [id number] 23:26:00 Test Item Value Reference Range Interpretation Comments POC-GLUCOSE METER 165 mg/dL 70-110 H TESTED AT [place] [address] ([facility]) (test code = [facility] 1538) [id number] POCT-GLUCOSE [id number] 16:41:00 Test Item Value Reference Range Interpretation Comments POC-GLUCOSE METER 206 mg/dL 70-110 H TESTED AT [place] [address] ([facility]) (test code = [facility] 1538) [address] POCT-GLUCOSE [id number] 12:48:00 Test Item Value Reference Range Interpretation Comments POC-GLUCOSE METER 131 mg/dL 70-110 H TESTED AT [place] [address] ([facility]) (test code = [facility] 1538) [address] POCT-GLUCOSE [id number] 08:00:00 Test Item Value Reference Range Interpretation Comments POC-GLUCOSE METER 116 mg/dL 70-110 H TESTED AT [place] [address] ([facility]) (test code = [facility] 1538) [address] RAD, CHEST, 1 VIEW, NON [id number] 06:00:00Reason for exam:->s/p acb; ct removalShould this be performed at the bedside?->YesFINAL REPORT RAD, CHEST, 1 VIEW, NON DEPT INDICATION: s/p acb; ct removal JAMAL RISON: Prior day's exam FINDINGS: Portable frontal view of the chest. IMPRESSION: Support Lines: None. Lungs and pleura: Stable moderate left effusion. Lungs are otherwise clear. No pneumothorax.Heart and mediastinum: Stable contours. Stable surgical changes.Additional findings: None. Signed: JR Saldaña Robert MDReport Verified Date/Time: 11/20/2016 06:00:03 Reading Location: [facility] B1 C013Y CT Body Reading Room CBC W/PLT COUNT & AUTO [id number] 00:41:00 Test Item Value Reference Range Interpretation Comments WHITE BLOOD CELL COUNT (BEAKER) 9.5 K/ L 3.5-10.5 (test code = 775) RED BLOOD CELL COUNT (BEAKER) 3.21 M/ L 4.63-6.08 L (test code = 761) HEMOGLOBIN (BEAKER) (test code = 9.7 GM/DL 13.7-17.5 L 410) HEMATOCRIT (BEAKER) (test code = 27.9 % 40.1-51.0 L 411) MEAN CORPUSCULAR VOLUME (BEAKER) 86.9 fL 79.0-92.2 (test code = 753) MEAN CORPUSCULAR HEMOGLOBIN 30.2 pg 25.7-32.2 (BEAKER) (test code = 751) MEAN CORPUSCULAR HEMOGLOBIN CONC 34.8 GM/DL 32.3-36.5 (BEAKER) (test code = 752) RED CELL DISTRIBUTION WIDTH 14.3 % 11.6-14.4 (BEAKER) (test code = 412) PLATELET COUNT (BEAKER) (test 204 K/CU MM 150-450 code = 756) MEAN PLATELET VOLUME (BEAKER) 9.7 fL 9.4-12.4 (test code = 754) NUCLEATED RED BLOOD CELLS 0 /100 WBC 0-0 (BEAKER) (test code = 413) NEUTROPHILS RELATIVE PERCENT 81 % (BEAKER) (test code = 429) LYMPHOCYTES RELATIVE PERCENT 8 % (BEAKER) (test code = 430) MONOCYTES RELATIVE PERCENT 10 % (BEAKER) (test code = 431) EOSINOPHILS RELATIVE PERCENT 0 % (BEAKER) (test code = 432) BASOPHILS RELATIVE PERCENT 0 % (BEAKER) (test code = 437) NEUTROPHILS ABSOLUTE COUNT 7.70 K/ L 1.78-5.38 H (BEAKER) (test code = 670) LYMPHOCYTES ABSOLUTE COUNT 0.74 K/ L 1.32-3.57 L (BEAKER) (test code = 414) MONOCYTES ABSOLUTE COUNT (BEAKER) 0.96 K/ L 0.30-0.82 H (test code = 415) EOSINOPHILS ABSOLUTE COUNT 0.04 K/ L 0.04-0.54 (BEAKER) (test code = 416) BASOPHILS ABSOLUTE COUNT (BEAKER) 0.03 K/ L 0.01-0.08 (test code = 417) IMMATURE GRANULOCYTES-RELATIVE 0 % 0-1 PERCENT (BEAKER) (test code = 2801) [id number] 00:23:00 Test Item Value Reference Range Interpretation Comments MAGNESIUM (BEAKER) (test code = 2.1 mg/dL 1.6-2.6 627) BASIC METABOLIC [id number] 00:23:00 Test Item Value Reference Range Interpretation Comments SODIUM (BEAKER) 135 meq/L 136-145 L (test code = 381) POTASSIUM (BEAKER) 3.8 meq/L 3.5-5.1 (test code = 379) CHLORIDE (BEAKER) 105 meq/L 98-107 (test code = 382) CO2 (BEAKER) (test 22 meq/L 22-29 code = 355) BLOOD UREA NITROGEN 20 mg/dL 7-21 (BEAKER) (test code = 354) CREATININE (BEAKER) 1.13 mg/dL 0.57-1.25 (test code = 358) GLUCOSE RANDOM 114 mg/dL 70-105 H (BEAKER) (test code = 652) CALCIUM (BEAKER) 8.6 mg/dL 8.4-10.2 (test code = 697) EGFR (BEAKER) (test 65 mL/min/1.73 ESTIMA SATURNINO GFR IS code = 1092) sq m NOT ACCURATE CREATININE CLEARANCE IN PREDICTING GLOMERULAR FILTRATION RATE . ESTIMATED GFR I S NOT APPLICABLE FOR DIALYSIS PATIEN TS. POCT-GLUCOSE [id number] 21:35:00 Test Item Value Reference Range Interpretation Comments POC-GLUCOSE METER 168 mg/dL 70-110 H TESTED AT [facility] 6720 (BEAKER) (test code = [place] 1538) [address] POCT-GLUCOSE [id number] 18:13:00 Test Item Value Reference Range Interpretation Comments POC-GLUCOSE METER 205 mg/dL 70-110 H [facility] (BEAKER) (test code = [place] 1538) [address] POCT-GLUCOSE [id number] 17:00:00 Test Item Value Reference Range Interpretation Comments POC-GLUCOSE METER 215 mg/dL 70-110 H TESTED AT [facility] 6720 ([facility]) (test code = [place] 1538) [address] POCT-GLUCOSE [id number] 12:35:00 Test Item Value Reference Range Interpretation Comments POC-GLUCOSE METER 154 mg/dL 70-110 H TESTED AT [facility] 6720 ([facility]) (test code = [place] 1538) [address] POCT-GLUCOSE [id number] 09:09:00 Test Item Value Reference Range Interpretation Comments POC-GLUCOSE METER 133 mg/dL 70-110 H TESTED AT [facility] 6720 ([facility]) (test code = [place] [facility] 1538) [address] RAD, CHEST, 1 VIEW, NON [id number] 06:29:00Reason for exam:->s/p acb; ct removalShould this be performed at the bedside?->YesFINAL REPORT RAD, CHEST, 1 VIEW, NON DEPT INDICATION: s/p acb; ct removal COMPAR MATTHEW: Prior day's exam FINDINGS: Portable frontal view of the chest. IMPRESSION: Support Lines: Thoracic drainage catheters been removed. The right IJ central venous catheter is no longer present. Lungs and pleura: Kyxfk-mw-fonelafc left effusion noted. Scattered subsegmental atelectasis. Persistent small left apical pneumothorax projecting at the level of the third rib posteriorly. No right pneumothorax.Heart and mediastinum: Stable contours. Stable surgical changes.Additional findings: None. Signed: JR Saldaña Robert MDReport Verified Date/Time: 11/19/2016 06:29:23 Reading Location: [facility] [id number] CT Body Reading Room [id number] 06:11:00 Test Item Value Reference Range Interpretation Comments MAGNESIUM (BEAKER) 2.2 mg/dL 1.6-2.6 Specimen slightly (test code = 627) hemolyzed [id number] 06:11:00 Test Item Value Reference Range Interpretation Comments PHOSPHORUS (BEAKER) 2.2 mg/dL 2.3-4.7 L Specimen slightly (test code = 604) hemolyzed BASIC METABOLIC [id number] 06:11:00 Test Item Value Reference Range Interpretation Comments SODIUM (BEAKER) 138 meq/L 136-145 (test code = 381) POTASSIUM (BEAKER) 4.7 meq/L 3.5-5.1 Specimen slightly (test code = 379) hemolyzed CHLORIDE (BEAKER) 111 meq/L 98-107 H (test code = 382) CO2 (BEAKER) (test 19 meq/L 22-29 L code = 355) BLOOD UREA NITROGEN 21 mg/dL 7-21 (BEAKER) (test code = 354) CREATININE (BEAKER) 1.03 mg/dL 0.57-1.25 Specimen slightly (test code = 358) hemolyzed GLUCOSE RANDOM 125 mg/dL 70-105 H (BEAKER) (test code = 652) CALCIUM (BEAKER) 8.4 mg/dL 8.4-10.2 (test code = 697) EGFR (BEAKER) (test 73 mL/min/1.73 ESTIMA SATURNINO GFR IS code = 1092) sq m NOT ACCURATE CREATININE CLEARANCE IN PREDICTING GLOMERULAR FILTRATION RATE . ESTIMATED GFR I S NOT APPLICABLE FOR DIALYSIS PATIEN TS. CBC (HEMOGRAM ONLY)2016-11-19 05:31:00 Test Item Value Reference Range Interpretation Comments WHITE BLOOD CELL COUNT (BEAKER) 9.7 K/ L 3.5-10.5 (test code = 775) RED BLOOD CELL COUNT (BEAKER) 3.35 M/ L 4.63-6.08 L (test code = 761) HEMOGLOBIN (BEAKER) (test code = 10.2 GM/DL 13.7-17.5 L 410) HEMATOCRIT (BEAKER) (test code = 30.2 % 40.1-51.0 L 411) MEAN CORPUSCULAR VOLUME (BEAKER) 90.1 fL 79.0-92.2 (test code = 753) MEAN CORPUSCULAR HEMOGLOBIN 30.4 pg 25.7-32.2 (BEAKER) (test code = 751) MEAN CORPUSCULAR HEMOGLOBIN CONC 33.8 GM/DL 32.3-36.5 (BEAKER) (test code = 752) RED CELL DISTRIBUTION WIDTH 14.9 % 11.6-14.4 H (BEAKER) (test code = 412) PLATELET COUNT (BEAKER) (test 218 K/CU MM 150-450 code = 756) MEAN PLATELET VOLUME (BEAKER) 10.0 fL 9.4-12.4 (test code = 754) NUCLEATED RED BLOOD CELLS 0 /100 WBC 0-0 (BEAKER) (test code = 413) POCT-GLUCOSE [id number] 22:10:00 Test Item Value Reference Range Interpretation Comments POC-GLUCOSE METER 243 mg/dL 70-110 H TESTED AT [facility] 67 ([facility]) (test code = [facility] [place] 1538) [id number] POCT-GLUCOSE [id number] 16:54:00 Test Item Value Reference Range Interpretation Comments POC-GLUCOSE METER 298 mg/dL 70-110 H TESTED AT [place] [address] ([facility]) (test code = [facility] 1538) [address] PLATELET AGGREGATION: FUNCTION [id number] 13:27:00 Test Item Value Reference Range Interpretation Comments WEAK ADP 64 % 60-91 RESULT(BEAKER) (test code = 2135) PLATELET FUNCTION 60-100% indicates SCREEN INTERP (BEAKER) normal platelet (test code = 2173) function [id number] Lori Watkins MD ([facility]) (test code = (electronic signature) 2622) PLATELET COUNT AGG 260 K/CU MM 150-450 (BEAKER) (test code = 2656) PLATELET AGGREGATION: FUNCTION [id number] 13:26:00 Test Item Value Reference Range Interpretation Comments WEAK ADP 65 % 60-91 RESULT(BEAKER) (test code = 2135) PLATELET FUNCTION 60-100% indicates SCREEN INTERP (BEAKER) normal platelet (test code = 2173) function [id number] Lori Watkins MD ([facility]) (test code = (electronic signature) 2622) PLATELET COUNT AGG 299 K/CU MM 150-450 (BEAKER) (test code = 2656) PLATELET AGGREGATION: FUNCTION [id number] 13:26:00 Test Item Value Reference Range Interpretation Comments WEAK ADP 38 % 60-91 L RESULT(BEAKER) (test code = 2135) PLATELET FUNCTION 0-39% indicates marked SCREEN INTERP platelet dysfunction (BEAKER) (test code = 2173) [id number] Lori Watkins MD (BEAKER) (test code = (electronic signature) 2622) PLATELET COUNT AGG 190 K/CU MM 150-450 (BEAKER) (test code = 2656) PLATELET AGGREGATION: FUNCTION [id number] 13:26:00 Test Item Value Reference Range Interpretation Comments WEAK ADP 52 % 60-91 L RESULT(BEAKER) (test code = 2135) PLATELET FUNCTION 40-49% indicates SCREEN INTERP moderate platelet (BEAKER) (test code = dysfunction 2173) [id number] Lori Watkins MD (BEAKER) (test code = (electronic signature) 2622) PLATELET COUNT AGG 178 K/CU MM 150-450 (BEAKER) (test code = 2656) PLATELET AGGREGATION: FUNCTION [id number] 13:25:00 Test Item Value Reference Range Interpretation Comments WEAK ADP 48 % 60-91 L RESULT(BEAKER) (test code = 2135) PLATELET FUNCTION 40-49% indicates SCREEN INTERP moderate platelet (BEAKER) (test code = dysfunction 2173) [id number] Lori Watkins MD (BEAKER) (test code = (electronic signature) 2622) PLATELET COUNT AGG 250 K/CU MM 150-450 (BEAKER) (test code = 2656) POCT-GLUCOSE [id number] 12:40:00 Test Item Value Reference Range Interpretation Comments POC-GLUCOSE METER 224 mg/dL 70-110 H TESTED AT [facility] 6720 ([facility]) (test code = [place] 1538) [address] HEMOGLOBIN AND [id number] 12:34:00 Test Item Value Reference Range Interpretation Comments HEMOGLOBIN (BEAKER) (test code = 10.2 g/dL 13.0-16.8 L 410) HEMATOCRIT (BEAKER) (test code = 30.0 % 40.0-50.0 L 411) POCT-GLUCOSE [id number] 10:27:00 Test Item Value Reference Range Interpretation Comments POC-GLUCOSE METER 197 mg/dL 70-110 H TESTED AT [facility] 6720 ([facility]) (test code = [place] 1538) [address] POCT-GLUCOSE [id number] 08:45:00 Test Item Value Reference Range Interpretation Comments POC-GLUCOSE METER 197 mg/dL 70-110 H TESTED AT [facility] 6720 (BEAKER) (test code = [place] 1538) [id number] RAD, CHEST, 1 VIEW, NON [id number] 05:29:00while patient is intubated or has chest tubes.Reason for exam:->s/p sternotomyShould this be performed at the bedside?->YesFINAL REPORT RAD, CHEST, 1 VIEW, NON DEPT INDICATION: s/p sternotomy COMPARISON: Prior day's exam FINDINGS: Portable frontal view of the chest. IMPRESSION: Since the prior examination, the endotracheal and nasogastric tubes have been removed. The midline/mediastinal drainage catheter and left thoracostomy tube are stable. The right IJ central venous catheter is unchanged. Decreasing volume noted in the left apical thorax. Subsegmental atelectasis is present bilaterally. There sunni trace left effusion. The cardiac size remains within normal limits. Sternotomy wires and surgical c hanges are stable. Signed: JR Saldaña Robert MDReport Verified Date/Time: 11/18/2016 05:29:08Reading Location: [address] Body Reading Room Electronically signed by: ARTHUR Washburn 11/18/2016 05:29 AMCBC W/PLT COUNT & AUTO [id number] 05:05:00 Test Item Value Reference Range Interpretation Comments WHITE BLOOD CELL COUNT (BEAKER) 7.1 K/ L 3.5-10.5 (test code = 775) RED BLOOD CELL COUNT (BEAKER) 2.09 M/ L 4.63-6.08 L (test code = 761) HEMOGLOBIN (BEAKER) (test code = 6.6 GM/DL 13.7-17.5 L 410) HEMATOCRIT (BEAKER) (test code = 18.4 % 40.1-51.0 L 411) MEAN CORPUSCULAR VOLUME (BEAKER) 88.0 fL 79.0-92.2 (test code = 753) MEAN CORPUSCULAR HEMOGLOBIN 31.6 pg 25.7-32.2 (BEAKER) (test code = 751) MEAN CORPUSCULAR HEMOGLOBIN CONC 35.9 GM/DL 32.3-36.5 (BEAKER) (test code = 752) RED CELL DISTRIBUTION WIDTH 14.4 % 11.6-14.4 (BEAKER) (test code = 412) PLATELET COUNT (BEAKER) (test 244 K/CU MM 150-450 code = 756) MEAN PLATELET VOLUME (BEAKER) 10.1 fL 9.4-12.4 (test code = 754) NUCLEATED RED BLOOD CELLS 0 /100 WBC 0-0 (BEAKER) (test code = 413) NEUTROPHILS RELATIVE PERCENT 83 % (BEAKER) (test code = 429) LYMPHOCYTES RELATIVE PERCENT 5 % (BEAKER) (test code = 430) MONOCYTES RELATIVE PERCENT 12 % (BEAKER) (test code = 431) EOSINOPHILS RELATIVE PERCENT 0 % (BEAKER) (test code = 432) BASOPHILS RELATIVE PERCENT 0 % (BEAKER) (test code = 437) NEUTROPHILS ABSOLUTE COUNT 5.85 K/ L 1.78-5.38 H (BEAKER) (test code = 670) LYMPHOCYTES ABSOLUTE COUNT 0.32 K/ L 1.32-3.57 L (BEAKER) (test code = 414) MONOCYTES ABSOLUTE COUNT (BEAKER) 0.86 K/ L 0.30-0.82 H (test code = 415) EOSINOPHILS ABSOLUTE COUNT 0.00 K/ L 0.04-0.54 L (BEAKER) (test code = 416) BASOPHILS ABSOLUTE COUNT (BEAKER) 0.01 K/ L 0.01-0.08 (test code = 417) IMMATURE GRANULOCYTES-RELATIVE 0 % 0-1 PERCENT (BEAKER) (test code = 2801) [id number] 04:56:00 Test Item Value Reference Range Interpretation Comments FIBRINOGEN LEVEL (BEAKER) (test 430 mg/dl 225-434 code = 658) [id number] 04:56:00 Test Item Value Reference Range Interpretation Comments PARTIAL THROMBOPLASTIN TIME 31.8 seconds 22.5-36.0 (BEAKER) (test code = 760) PROTHROMBIN [id number] 04:55:00 Test Item Value Reference Range Interpretation Comments PROTIME (BEAKER) (test code = 16.4 seconds 11.7-14.7 H 759) INR (BEAKER) (test code = 370) 1.3 <=5.9 RECOMMENDED COUMADIN/WARFARIN INR THERAPY RANGESSTANDARD DOSE: 2.0 - 3.0 Includes: PROPHYLAXIS for venous thrombosis, systemic embolization; TREATMENT for venous thrombosis and/or pulmonary embolus.HIGH RISK: Target INR is 2.5-3.5 for patients with mechanical heart valves.BASIC METABOLIC [id number] 04:53:00 Test Item Value Reference Range Interpretation Comments SODIUM (BEAKER) 141 meq/L 136-145 (test code = 381) POTASSIUM (BEAKER) 4.4 meq/L 3.5-5.1 (test code = 379) CHLORIDE (BEAKER) 111 meq/L 98-107 H (test code = 382) CO2 (BEAKER) (test 20 meq/L 22-29 L code = 355) BLOOD UREA NITROGEN 22 mg/dL 7-21 H (BEAKER) (test code = 354) CREATININE (BEAKER) 1.15 mg/dL 0.57-1.25 (test code = 358) GLUCOSE RANDOM 178 mg/dL 70-105 H (BEAKER) (test code = 652) CALCIUM (BEAKER) 7.9 mg/dL 8.4-10.2 L (test code = 697) EGFR (BEAKER) (test 64 mL/min/1.73 ESTIMA SATURNINO GFR IS code = 1092) sq m NOT ACCURATE CREATININE CLEARANCE IN PREDICTING GLOMERULAR FILTRATION RATE . ESTIMATED GFR I S NOT APPLICABLE FOR DIALYSIS PATIEN TS. [id number] 04:52:00 Test Item Value Reference Range Interpretation Comments PHOSPHORUS (BEAKER) (test code = 3.0 mg/dL 2.3-4.7 604) [id number] 04:52:00 Test Item Value Reference Range Interpretation Comments MAGNESIUM (BEAKER) (test code = 2.0 mg/dL 1.6-2.6 627) LACTIC ACID, ARTERIAL, WHOLE [id number] 04:46:00 Test Item Value Reference Range Interpretation Comments LACTATE BLOOD ARTERIAL (2) 0.9 mmol/L 0.5-2.2 (BEAKER) (test code = 2874) Effective 06/24/2015: Units/Reference Range ChangeNew: 0.5-2.2 mmol/L Previous: 5- 20 mg/dLOXYGEN SATURATION, [id number] 04:40:00 Test Item Value Reference Range Interpretation Comments O2 SATURATION (MEASURED) (BEAKER) 65.1 % (test code = 1455) CALCIUM, [id number] 04:35:00 Test Item Value Reference Range Interpretation Comments CALCIUM IONIZED (BEAKER) (test 1.05 mmol/L 1.12-1.27 L code = 698) PH, BLOOD (BEAKER) (test code = 7.37 1810) POCT-GLUCOSE [id number] 02:17:00 Test Item Value Reference Range Interpretation Comments POC-GLUCOSE METER 189 mg/dL 70-110 H TESTED AT [facility] 6720 (BEAKER) (test code = [place] 1538) [id number] BLOOD GAS, [id number] 21:48:00 Test Item Value Reference Range Interpretation Comments PH ARTERIAL (BEAKER) (test code = 7.41 7.35-7.45 383) PCO2 ARTERIAL (BEAKER) (test code 33 mmHg 35-45 L = 384) PO2 ARTERIAL (BEAKER) (test code 168 mmHg 80-90 H = 385) O2 SATURATION ARTERIAL (BEAKER) 99.2 % 96.0-97.0 H (test code = 386) HCO3 ARTERIAL (BEAKER) (test code 21 mmol/L 29 = 388) BASE EXCESS ARTERIAL (BEAKER) -3.5 mmol/L -2.0-3.0 L (test code = 387) PATIENT TEMPERATURE (BEAKER) 37.5 C (test code = 1818) FIO2 (BEAKER) (test code = 1819) 36.0 % Includes Post extubation ABGIncludes Post extubation ABGIncludes Post extubation ABGIncludes Post extubation ABGIncludes Post extubation ABGGLUCOSE-STAT LAB 2016-11-17 21:48:00 Test Item Value Reference Range Interpretation Comments GLUCOSE RANDOM (BEAKER) (test code 186 mg/dL 70-110 H = 652) Includes Post extubation ABGIncludes Post extubation ABGIncludes Post extubation ABGIncludes Post extubation ABGIncludes Post extubation ABGHGB/HCT (H&H) - STAT [id number] 21:48:00 Test Item Value Reference Range Interpretation Comments HEMOGLOBIN (BEAKER) (test code = 7.0 g/dL 13.0-16.8 L 410) HEMATOCRIT (BEAKER) (test code = 21.0 % 40.0-50.0 L 411) Includes Post extubation ABGIncludes Post extubation ABGIncludes Post extubation ABGIncludes Post extubation ABGIncludes Post extubation ABGSODIUM NA-STAT LAB 2016-11-17 21:44:00 Test Item Value Reference Range Interpretation Comments SODIUM (BEAKER) (test code = 381) 136 meq/L 135-148 Includes Post extubation ABGIncludes Post extubation ABGIncludes Post extubation ABGIncludes Post extubation ABGIncludes Post extubation ABGPOTASSIUM-STAT LAB 2016-11-17 21:44:00 Test Item Value Reference Range Interpretation Comments POTASSIUM (BEAKER) (test code = 4.4 meq/L 3.6-5.5 379) Includes Post extubation ABGIncludes Post extubation ABGIncludes Post extubation ABGIncludes Post extubation ABGIncludes Post extubation ABGBLOOD GAS, ARTERIAL 2016-11-17 20:06:00 Test Item Value Reference Range Interpretation Comments PH ARTERIAL (BEAKER) (test code = 7.41 7.35-7.45 383) PCO2 ARTERIAL (BEAKER) (test code 31 mmHg 35-45 L = 384) PO2 ARTERIAL (BEAKER) (test code 125 mmHg 80-90 H = 385) O2 SATURATION ARTERIAL (BEAKER) 98.5 % 96.0-97.0 H (test code = 386) HCO3 ARTERIAL (BEAKER) (test code 19 mmol/L 21-29 L = 388) BASE EXCESS ARTERIAL (BEAKER) -4.9 mmol/L -2.0-3.0 L (test code = 387) PATIENT TEMPERATURE (BEAKER) 37.2 C (test code = 1818) FIO2 (BEAKER) (test code = 1819) 40.0 % BLOOD GAS, [id number] 18:48:00 Test Item Value Reference Range Interpretation Comments PH ARTERIAL (BEAKER) (test code = 7.38 7.35-7.45 383) PCO2 ARTERIAL (BEAKER) (test code 33 mmHg 35-45 L = 384) PO2 ARTERIAL (BEAKER) (test code 71 mmHg 80-90 L = 385) O2 SATURATION ARTERIAL (BEAKER) 94.5 % 96.0-97.0 L (test code = 386) HCO3 ARTERIAL (BEAKER) (test code 19 mmol/L 21-29 L = 388) BASE EXCESS ARTERIAL (BEAKER) -5.2 mmol/L -2.0-3.0 L (test code = 387) PATIENT TEMPERATURE (BEAKER) 36.8 C (test code = 1818) FIO2 (BEAKER) (test code = 1819) 40.0 % GLUCOSE-STAT [id number] 18:48:00 Test Item Value Reference Range Interpretation Comments GLUCOSE RANDOM (BEAKER) (test code 211 mg/dL 70-110 H = 652) HGB/HCT (H&H) - STAT [id number] 18:48:00 Test Item Value Reference Range Interpretation Comments HEMOGLOBIN (BEAKER) (test code = 8.4 g/dL 13.0-16.8 L 410) HEMATOCRIT (BEAKER) (test code = 25.0 % 40.0-50.0 L 411) SODIUM NA-STAT [id number] 18:46:00 Test Item Value Reference Range Interpretation Comments SODIUM (BEAKER) (test code = 381) 135 meq/L 135-148 POTASSIUM-STAT [id number] 18:46:00 Test Item Value Reference Range Interpretation Comments POTASSIUM (BEAKER) (test code = 4.4 meq/L 3.6-5.5 379) BLOOD GAS, [id number] 18:25:00 Test Item Value Reference Range Interpretation Comments PH ARTERIAL (BEAKER) (test code = 7.43 7.35-7.45 383) PCO2 ARTERIAL (BEAKER) (test code 29 mmHg 35-45 L = 384) PO2 ARTERIAL (BEAKER) (test code 65 mmHg 80-90 L = 385) O2 SATURATION ARTERIAL (BEAKER) 93.8 % 96.0-97.0 L (test code = 386) HCO3 ARTERIAL (BEAKER) (test code 19 mmol/L 21-29 L = 388) BASE EXCESS ARTERIAL (BEAKER) -4.7 mmol/L -2.0-3.0 L (test code = 387) PATIENT TEMPERATURE (BEAKER) 36.8 C (test code = 1818) FIO2 (BEAKER) (test code = 1819) 40.0 % CBC W/PLT COUNT & AUTO [id number] 18:15:00 Test Item Value Reference Range Interpretation Comments WHITE BLOOD CELL 6.1 K/ L 3.5-10.5 COUNT (BEAKER) (test code = 775) RED BLOOD CELL COUNT 2.47 M/ L 4.63-6.08 L (BEAKER) (test code = 761) HEMOGLOBIN (BEAKER) 7.9 GM/DL 13.7-17.5 L (test code = 410) HEMATOCRIT (BEAKER) 22.7 % 40.1-51.0 L (test code = 411) MEAN CORPUSCULAR 91.9 fL 79.0-92.2 VOLUME (BEAKER) (test code = 753) MEAN CORPUSCULAR 32.0 pg 25.7-32.2 HEMOGLOBIN (BEAKER) (test code = 751) MEAN CORPUSCULAR 34.8 GM/DL 32.3-36.5 HEMOGLOBIN CONC (BEAKER) (test code = 752) RED CELL DISTRIBUTION 14.6 % 11.6-14.4 H WIDTH (BEAKER) (test code = 412) PLATELET COUNT 247 K/CU MM 150-450 Significantly (BEAKER) (test code = differ ent from 756) previous result MEAN PLATELET VOLUME 9.7 fL 9.4-12.4 (BEAKER) (test code = 754) NUCLEATED RED BLOOD 0 /100 WBC 0-0 CELLS (BEAKER) (test code = 413) IMMATURE 0 % 0-1 GRANULOCYTES-RELATIVE PERCENT (BEAKER) (test code = 2801) (MANUAL DIFFERENTIAL)2016-11-17 18:15:00 Test Item Value Reference Range Interpretation Comments NEUTROPHILS - REL (DIFF) (BEAKER) 68 % (test code = 1359) LYMPHOCYTES - REL (DIFF) (BEAKER) 7 % (test code = 1360) MONOCYTES - REL (DIFF) (BEAKER) 7 % (test code = 1361) EOSINOPHILS - REL (DIFF) (BEAKER) 4 % (test code = 1362) BANDS - REL (DIFF) (BEAKER) (test 14 % 0-10 H code = 1348) NEUTROPHILS - ABS (DIFF) (BEAKER) 4.15 K/ L 1.80-8.00 (test code = 1365) LYMPHOCYTES - ABS (DIFF) (BEAKER) 0.43 K/ L 1.48-4.50 L (test code = 1366) MONOCYTES - ABS (DIFF) (BEAKER) 0.43 K/ L 0.00-1.30 (test code = 1367) EOSINOPHILS - ABS (DIFF) (BEAKER) 0.24 K/ L 0.00-0.50 (test code = 1368) BANDS-ABS (DIFF) (BEAKER) (test 0.9 K/ L 0.0-0.8 H code = 1349) TOTAL COUNTED (BEAKER) (test code = 100 1351) BANDS + SEGMENTED NEUTROPHILS 5.00 (BEAKER) (test code = 1352) PLT MORPHOLOGY (BEAKER) (test code Normal = 486) RBC MORPHOLOGY (BEAKER) (test code Normal = 762) VACUOLATED NEUTROPHILS (BEAKER) Present (test code = 483) RAD, CHEST, 1 VIEW, NON [id number] 15:31:00Reason for exam:->s/p explorationShould this be performed at the bedside?->YesFINAL REPORT EXAM: AP chest radiograph HISTORY: Status post exploration COMPARIS ON: 11/17/2016 1226 IMPRESSION:Lines and tubes are in stable position. A small left apical pneumothorax is suspected and there is a left thoracostomy tube in place. Retrocardiac opacity represents a small pleural effusion and atelectasis versus consolidation, without significant change. The cardiac silhouette is stable. The finding of the suspected small left apical pneumothorax were discussed with the patient's nurse, Charles at 3:30 PM on 11/17/2016. Signed: Delmy Baca Verified Date/Time: 11/17/2016 15:31:27 Reading Location: [facility] Reading Room THROMBOELASTOGRAPH (TEG)2016-11-17 15:25:00 Test Item Value Reference Range Interpretation Comments TEG ACTIVATED CLOTTING TIME 5.0 minutes 4.0-7.0 (BEAKER) (test code = 1407) TEG FIBRINOGEN ACTIVITY (BEAKER) 74.5 degrees 61.0-73.0 H (test code = 1408) TEG PLT. AGGREGATION (BEAKER) 58.6 MM 55.0-65.0 (test code = 1409) TEG FIBRINOLYSIS (BEAKER) (test 13.1 % 0.0-5.0 H code = 1410) TGH ACTIVATED CLOTTING TIME 5.4 minutes 4.0-7.0 (BEAKER) (test code = 1411) TGH FIBRINOGEN ACTIVITY (BEAKER) 78.5 degrees 61.0-73.0 H (test code = 1412) TGH PLT. AGGREGATION (BEAKER) 60.8 MM 55.0-65.0 (test code = 1413) TGH FIBRINOLYSIS (BEAKER) (test 0.0 % 0.0-5.0 code = 1414) BLOOD GAS, [id number] 14:58:00 Test Item Value Reference Range Interpretation Comments PH ARTERIAL (BEAKER) (test code = 7.46 7.35-7.45 H 383) PCO2 ARTERIAL (BEAKER) (test code 30 mmHg 35-45 L = 384) PO2 ARTERIAL (BEAKER) (test code 160 mmHg 80-90 H = 385) O2 SATURATION ARTERIAL (BEAKER) 99.2 % 96.0-97.0 H (test code = 386) HCO3 ARTERIAL (BEAKER) (test code 21 mmol/L 21-29 = 388) BASE EXCESS ARTERIAL (BEAKER) -2.7 mmol/L -2.0-3.0 L (test code = 387) PATIENT TEMPERATURE (BEAKER) 36.7 C (test code = 1818) FIO2 (BEAKER) (test code = 1819) 60.0 % THROMBOELASTOGRAPH (TEG)2016-11-17 14:37:00 Test Item Value Reference Range Interpretation Comments TEG ACTIVATED CLOTTING TIME 5.9 minutes 4.0-7.0 (BEAKER) (test code = 1407) TEG FIBRINOGEN ACTIVITY (BEAKER) 84.0 degrees 61.0-73.0 H (test code = 1408) TEG PLT. AGGREGATION (BEAKER) 51.3 MM 55.0-65.0 L (test code = 1409) TGH ACTIVATED CLOTTING TIME 5.3 minutes 4.0-7.0 (BEAKER) (test code = 1411) TGH FIBRINOGEN ACTIVITY (BEAKER) 78.8 degrees 61.0-73.0 H (test code = 1412) TGH PLT. AGGREGATION (BEAKER) 61.6 MM 55.0-65.0 (test code = 1413) [id number] 14:05:00 Test Item Value Reference Range Interpretation Comments PARTIAL THROMBOPLASTIN TIME 27.0 seconds 22.5-36.0 (BEAKER) (test code = 760) [id number] 14:05:00 Test Item Value Reference Range Interpretation Comments FIBRINOGEN LEVEL (BEAKER) (test 219 mg/dl 225-434 L code = 658) PROTHROMBIN [id number] 14:04:00 Test Item Value Reference Range Interpretation Comments PROTIME (BEAKER) (test code = 17.9 seconds 11.7-14.7 H 759) INR (BEAKER) (test code = 370) 1.5 <=5.9 RECOMMENDED COUMADIN/WARFARIN INR THERAPY RANGESSTANDARD DOSE: 2.0 - 3.0 Includes: PROPHYLAXIS for venous thrombosis, systemic embolization; TREATMENT for venous thrombosis and/or pulmonary embolus.HIGH RISK: Target INR is 2.5-3.5 for patients with mechanical heart valves.PLATELET [id number] 13:54:00 Test Item Value Reference Range Interpretation Comments PLATELET COUNT (BEAKER) (test 298 K/CU MM 150-450 code = 756) CALCIUM, [id number] 13:38:00 Test Item Value Reference Range Interpretation Comments CALCIUM IONIZED (BEAKER) (test 1.03 mmol/L 1.12-1.27 L code = 698) PH, BLOOD (BEAKER) (test code = 7.45 1810) BLOOD GAS, [id number] 13:38:00 Test Item Value Reference Range Interpretation Comments PH ARTERIAL (BEAKER) (test code = 7.48 7.35-7.45 H 383) PCO2 ARTERIAL (BEAKER) (test code 29 mmHg 35-45 L = 384) PO2 ARTERIAL (BEAKER) (test code 377 mmHg 80-90 H = 385) O2 SATURATION ARTERIAL (BEAKER) 99.8 % 96.0-97.0 H (test code = 386) HCO3 ARTERIAL (BEAKER) (test code 22 mmol/L 21-29 = 388) BASE EXCESS ARTERIAL (BEAKER) -2.1 mmol/L -2.0-3.0 L (test code = 387) PATIENT TEMPERATURE (BEAKER) 35.0 C (test code = 1818) FIO2 (BEAKER) (test code = 1819) 100.0 % GLUCOSE-STAT [id number] 13:38:00 Test Item Value Reference Range Interpretation Comments GLUCOSE RANDOM (BEAKER) (test code 163 mg/dL 70-110 H = 652) HGB/HCT (H&H) - STAT [id number] 13:38:00 Test Item Value Reference Range Interpretation Comments HEMOGLOBIN (BEAKER) (test code = 7.7 g/dL 13.0-16.8 L 410) HEMATOCRIT (BEAKER) (test code = 23.0 % 40.0-50.0 L 411) SODIUM NA-STAT [id number] 13:36:00 Test Item Value Reference Range Interpretation Comments SODIUM (BEAKER) (test code = 381) 136 meq/L 135-148 POTASSIUM-STAT [id number] 13:36:00 Test Item Value Reference Range Interpretation Comments POTASSIUM (BEAKER) (test code = 4.6 meq/L 3.6-5.5 379) BASIC METABOLIC [id number] 13:18:00 Test Item Value Reference Range Interpretation Comments SODIUM (BEAKER) 138 meq/L 136-145 (test code = 381) POTASSIUM (BEAKER) 5.1 meq/L 3.5-5.1 (test code = 379) CHLORIDE (BEAKER) 112 meq/L 98-107 H (test code = 382) CO2 (BEAKER) (test 18 meq/L 22-29 L code = 355) BLOOD UREA NITROGEN 23 mg/dL 7-21 H (BEAKER) (test code = 354) CREATININE (BEAKER) 0.96 mg/dL 0.57-1.25 (test code = 358) GLUCOSE RANDOM 159 mg/dL 70-105 H (BEAKER) (test code = 652) CALCIUM (BEAKER) 7.7 mg/dL 8.4-10.2 L (test code = 697) EGFR (BEAKER) (test 79 mL/min/1.73 ESTIMA SATURNINO GFR IS code = 1092) sq m NOT ACCURATE CREATININE CLEARANCE IN PREDICTING GLOMERULAR FILTRATION RATE . ESTIMATED GFR I S NOT APPLICABLE FOR DIALYSIS PATIEN TS. LACTIC ACID, ARTERIAL, WHOLE [id number] 13:13:00 Test Item Value Reference Range Interpretation Comments LACTATE BLOOD ARTERIAL (2) 0.8 mmol/L 0.5-2.2 (BEAKER) (test code = 2874) Effective 06/24/2015: Units/Reference Range ChangeNew: 0.5-2.2 mmol/L Previous: 5- 20 mg/dLTHROMBOELASTOGRAPH (TEG)2016-11-17 13:13:00 Test Item Value Reference Range Interpretation Comments TEG ACTIVATED CLOTTING TIME 6.2 minutes 4.0-7.0 (BEAKER) (test code = 1407) TEG FIBRINOGEN ACTIVITY (BEAKER) 73.2 degrees 61.0-73.0 H (test code = 1408) TEG PLT. AGGREGATION (BEAKER) 64.0 MM 55.0-65.0 (test code = 1409) TGH ACTIVATED CLOTTING TIME 6.5 minutes 4.0-7.0 (BEAKER) (test code = 1411) TGH FIBRINOGEN ACTIVITY (BEAKER) 74.0 degrees 61.0-73.0 H (test code = 1412) TGH PLT. AGGREGATION (BEAKER) 53.9 MM 55.0-65.0 L (test code = 1413) PROTHROMBIN [id number] 13:01:00 Test Item Value Reference Range Interpretation Comments PROTIME (BEAKER) (test code = 17.3 seconds 11.7-14.7 H 759) INR (BEAKER) (test code = 370) 1.4 <=5.9 RECOMMENDED COUMADIN/WARFARIN INR THERAPY RANGESSTANDARD DOSE: 2.0 - 3.0 Includes: PROPHYLAXIS for venous thrombosis, systemic embolization; TREATMENT for venous thrombosis and/or pulmonary embolus.HIGH RISK: Target INR is 2.5-3.5 for patients with mechanical heart valves.CBC (HEMOGRAM ONLY)2016-11-17 13:01:00 Test Item Value Reference Range Interpretation Comments WHITE BLOOD CELL 6.5 K/ L 3.5-10.5 COUNT (BEAKER) (test code = 775) RED BLOOD CELL COUNT 2.73 M/ L 4.63-6.08 L (BEAKER) (test code = 761) HEMOGLOBIN (BEAKER) 8.2 GM/DL 13.7-17.5 L (test code = 410) HEMATOCRIT (BEAKER) 24.2 % 40.1-51.0 L (test code = 411) MEAN CORPUSCULAR 88.6 fL 79.0-92.2 VOLUME (BEAKER) (test code = 753) MEAN CORPUSCULAR 30.0 pg 25.7-32.2 HEMOGLOBIN (BEAKER) (test code = 751) MEAN CORPUSCULAR 33.9 GM/DL 32.3-36.5 HEMOGLOBIN CONC (BEAKER) (test code = 752) RED CELL DISTRIBUTION 14.0 % 11.6-14.4 WIDTH (BEAKER) (test code = 412) PLATELET COUNT 173 K/CU MM 150-450 Significantly (BEAKER) (test code = differ ent from 756) previous result s MEAN PLATELET VOLUME 9.5 fL 9.4-12.4 (BEAKER) (test code = 754) NUCLEATED RED BLOOD 0 /100 WBC 0-0 CELLS (BEAKER) (test code = 413) [id number] 13:01:00 Test Item Value Reference Range Interpretation Comments FIBRINOGEN LEVEL (BEAKER) (test 207 mg/dl 225-434 L code = 658) [id number] 13:01:00 Test Item Value Reference Range Interpretation Comments PROTIME (BEAKER) (test code = 17.3 seconds 11.7-14.7 H 759) INR (BEAKER) (test code = 370) 1.4 <=5.9 PARTIAL THROMBOPLASTIN TIME 31.9 seconds 22.5-36.0 (BEAKER) (test code = 760) RECOMMENDED COUMADIN/WARFARIN INR THERAPY RANGESSTANDARD DOSE: 2.0 - 3.0 Includes: PROPHYLAXIS for venous thrombosis, systemic embolization; TREATMENT for venous thrombosis and/or pulmonary embolus.HIGH RISK: Target INR is 2.5-3.5 for patients with mechanical heart valves.OXYGEN SATURATION, [id number] 12:59:00 Test Item Value Reference Range Interpretation Comments O2 SATURATION (MEASURED) (BEAKER) 54.6 % (test code = 1455) POTASSIUM-STAT [id number] 12:57:00 Test Item Value Reference Range Interpretation Comments POTASSIUM (BEAKER) (test code = 4.8 meq/L 3.6-5.5 379) BLOOD GAS, [id number] 12:57:00 Test Item Value Reference Range Interpretation Comments PH ARTERIAL (BEAKER) (test code = 7.45 7.35-7.45 383) PCO2 ARTERIAL (BEAKER) (test code 30 mmHg 35-45 L = 384) PO2 ARTERIAL (BEAKER) (test code 116 mmHg 80-90 H = 385) O2 SATURATION ARTERIAL (BEAKER) 98.5 % 96.0-97.0 H (test code = 386) HCO3 ARTERIAL (BEAKER) (test code 21 mmol/L 21-29 = 388) BASE EXCESS ARTERIAL (BEAKER) -2.9 mmol/L -2.0-3.0 L (test code = 387) PATIENT TEMPERATURE (BEAKER) 36.3 C (test code = 1818) FIO2 (BEAKER) (test code = 1819) 60.0 % GLUCOSE-STAT [id number] 12:57:00 Test Item Value Reference Range Interpretation Comments GLUCOSE RANDOM (BEAKER) (test code 153 mg/dL 70-110 H = 652) SODIUM NA-STAT [id number] 12:57:00 Test Item Value Reference Range Interpretation Comments SODIUM (BEAKER) (test code = 381) 133 meq/L 135-148 L CALCIUM, [id number] 12:57:00 Test Item Value Reference Range Interpretation Comments CALCIUM IONIZED (BEAKER) (test 1.11 mmol/L 1.12-1.27 L code = 698) PH, BLOOD (BEAKER) (test code = 7.44 1810) HGB/HCT (H&H) - STAT [id number] 12:57:00 Test Item Value Reference Range Interpretation Comments HEMOGLOBIN (BEAKER) (test code = 8.6 g/dL 13.0-16.8 L 410) HEMATOCRIT (BEAKER) (test code = 25.0 % 40.0-50.0 L 411) RAD, CHEST, 1 VIEW, NON [id number] 12:47:00Reason for exam:->S/p CABGShould this be performed at the bedside?->YesFINAL REPORT Chest one view INDICATION: Status post CABG COMPARISON: 11/17/2016 at 0531 hours IMPRESSION: Status post median sternotomy with mediastinal and pleural drains in place.ET tube terminates 3.7 cm above the claudy. NG tube extends below the diaphragm with tip off image. Right jugular line extends to the SVC. No pneumothorax is seen. There is mild pulmonary vascular congestion and left retrocardiac opacity which could reflect atelectasis with adjacent small pleural effusion. Aspiration cannot be excluded and clinical correlation is advised. There are blebs in the lung apices. Heart size is magnified by technique. Signed: Sushant Champagne MDReport Verified Date/Time: 11/17/2016 12:47:07 [facility] PLATELET AGGREGATION: FUNCTION [id number] 12:23:00 Test Item Value Reference Range Interpretation Comments WEAK ADP 65 % 60-91 RESULT(BEAKER) (test code = 2135) PLATELET FUNCTION 60-100% indicates SCREEN INTERP (BEAKER) normal platelet (test code = 2173) function [id number] Jozef Guillermo M.D. (BEAKER) (test code = (electonic signature) 3745) PLATELET COUNT AGG 222 K/CU MM 150-450 (BEAKER) (test code = 2656) [id number] 11:33:00 Test Item Value Reference Range Interpretation Comments FIBRINOGEN LEVEL (BEAKER) (test 244 mg/dl 225-434 code = 658) [id number] 11:33:00 Test Item Value Reference Range Interpretation Comments PARTIAL THROMBOPLASTIN TIME 31.5 seconds 22.5-36.0 (BEAKER) (test code = 760) PROTHROMBIN [id number] 11:32:00 Test Item Value Reference Range Interpretation Comments PROTIME (BEAKER) (test code = 19.3 seconds 11.7-14.7 H 759) INR (BEAKER) (test code = 370) 1.6 <=5.9 RECOMMENDED COUMADIN/WARFARIN INR THERAPY RANGESSTANDARD DOSE: 2.0 - 3.0 Includes: PROPHYLAXIS for venous thrombosis, systemic embolization; TREATMENT for venous thrombosis and/or pulmonary embolus.HIGH RISK: Target INR is 2.5-3.5 for patients with mechanical heart valves.BLOOD GAS, [id number] 11:30:00 Test Item Value Reference Range Interpretation Comments PH ARTERIAL (BEAKER) (test code = 7.39 7.35-7.45 383) PCO2 ARTERIAL (BEAKER) (test code 38 mmHg 35-45 = 384) PO2 ARTERIAL (BEAKER) (test code 373 mmHg 80-90 H = 385) O2 SATURATION ARTERIAL (BEAKER) 99.8 % 96.0-97.0 H (test code = 386) HCO3 ARTERIAL (BEAKER) (test code 23 mmol/L 21-29 = 388) BASE EXCESS ARTERIAL (BEAKER) -2.1 mmol/L -2.0-3.0 L (test code = 387) PATIENT TEMPERATURE (BEAKER) 35.5 C (test code = 1818) FIO2 (BEAKER) (test code = 1819) 100.0 % GLUCOSE-STAT [id number] 11:30:00 Test Item Value Reference Range Interpretation Comments GLUCOSE RANDOM (BEAKER) (test code 152 mg/dL 70-110 H = 652) SODIUM NA-STAT [id number] 11:30:00 Test Item Value Reference Range Interpretation Comments SODIUM (BEAKER) (test code = 381) 132 meq/L 135-148 L HGB/HCT (H&H) - STAT [id number] 11:30:00 Test Item Value Reference Range Interpretation Comments HEMOGLOBIN (BEAKER) (test code = 7.4 g/dL 13.0-16.8 L 410) HEMATOCRIT (BEAKER) (test code = 22.0 % 40.0-50.0 L 411) CALCIUM, [id number] 11:30:00 Test Item Value Reference Range Interpretation Comments CALCIUM IONIZED (BEAKER) (test 1.09 mmol/L 1.12-1.27 L code = 698) PH, BLOOD (BEAKER) (test code = 7.37 1810) POTASSIUM-STAT [id number] 11:29:00 Test Item Value Reference Range Interpretation Comments POTASSIUM (BEAKER) (test code = 5.5 meq/L 3.6-5.5 379) PLATELET [id number] 11:23:00 Test Item Value Reference Range Interpretation Comments PLATELET COUNT (BEAKER) (test 225 K/CU MM 150-450 code = 756) [id number] 10:49:00 Test Item Value Reference Range Interpretation Comments ACTIVATED CLOTTING TIME 113 sec TEST ED AT [place] [address] (BEAKER) (test code = [place] [address]) [id number] 10:49:00 Test Item Value Reference Range Interpretation Comments ACTIVATED CLOTTING TIME 659 sec TEST ED AT [place] [address] ([facility]) (test code = BRITTANEY Muniz [place] [address]) [id number] 10:49:00 Test Item Value Reference Range Interpretation Comments ACTIVATED CLOTTING TIME 978 sec TEST ED AT [place] [address] ([facility]) (test code = BRITTANEY Muniz [place] [address]) [address] [id number] 10:49:00 Test Item Value Reference Range Interpretation Comments ACTIVATED CLOTTING TIME 631 sec TEST ED AT [place] [address] ([facility]) (test code = BRITTANEY Muniz [place] [address]) [address] [id number] 10:49:00 Test Item Value Reference Range Interpretation Comments ACTIVATED CLOTTING TIME 125 sec TEST ED AT [place] [address] ([facility]) (test code = BRITTANEY Muniz [place] [address]) [address] CALCIUM, [id number] 10:42:00 Test Item Value Reference Range Interpretation Comments CALCIUM IONIZED (BEAKER) (test 1.17 mmol/L 1.12-1.27 code = 698) PH, BLOOD (BEAKER) (test code = 7.35 1810) BLOOD GAS, [id number] 10:42:00 Test Item Value Reference Range Interpretation Comments PH ARTERIAL (BEAKER) (test code = 7.38 7.35-7.45 383) PCO2 ARTERIAL (BEAKER) (test code 37 mmHg 35-45 = 384) PO2 ARTERIAL (BEAKER) (test code 287 mmHg 80-90 H = 385) O2 SATURATION ARTERIAL (BEAKER) 99.7 % 96.0-97.0 H (test code = 386) HCO3 ARTERIAL (BEAKER) (test code 22 mmol/L 21-29 = 388) BASE EXCESS ARTERIAL (BEAKER) -3.8 mmol/L -2.0-3.0 L (test code = 387) PATIENT TEMPERATURE (BEAKER) 34.9 C (test code = 1818) FIO2 (BEAKER) (test code = 1819) 95.0 % SODIUM NA-STAT [id number] 10:42:00 Test Item Value Reference Range Interpretation Comments SODIUM (BEAKER) (test code = 381) 131 meq/L 135-148 L POTASSIUM-STAT [id number] 10:42:00 Test Item Value Reference Range Interpretation Comments POTASSIUM (BEAKER) (test code = 5.9 meq/L 3.6-5.5 H 379) GLUCOSE-STAT [id number] 10:42:00 Test Item Value Reference Range Interpretation Comments GLUCOSE RANDOM (BEAKER) (test code 158 mg/dL 70-110 H = 652) HGB/HCT (H&H) - STAT [id number] 10:42:00 Test Item Value Reference Range Interpretation Comments HEMOGLOBIN (BEAKER) (test code = 9.2 g/dL 13.0-16.8 L 410) HEMATOCRIT (BEAKER) (test code = 27.0 % 40.0-50.0 L 411) POTASSIUM-STAT [id number] 10:11:00 Test Item Value Reference Range Interpretation Comments POTASSIUM (BEAKER) (test code = 6.1 meq/L 3.6-5.5 HH 379) BLOOD GAS, [id number] 10:10:00 Test Item Value Reference Range Interpretation Comments PH ARTERIAL (BEAKER) (test code = 7.39 7.35-7.45 383) PCO2 ARTERIAL (BEAKER) (test code 38 mmHg 35-45 = 384) PO2 ARTERIAL (BEAKER) (test code 306 mmHg 80-90 H = 385) O2 SATURATION ARTERIAL (BEAKER) 99.7 % 96.0-97.0 H (test code = 386) HCO3 ARTERIAL (BEAKER) (test code 23 mmol/L 21-29 = 388) BASE EXCESS ARTERIAL (BEAKER) -2.5 mmol/L -2.0-3.0 L (test code = 387) PATIENT TEMPERATURE (BEAKER) 35.4 C (test code = 1818) FIO2 (BEAKER) (test code = 1819) 100.0 % SODIUM NA-STAT [id number] 10:10:00 Test Item Value Reference Range Interpretation Comments SODIUM (BEAKER) (test code = 381) 129 meq/L 135-148 L GLUCOSE-STAT [id number] 10:10:00 Test Item Value Reference Range Interpretation Comments GLUCOSE RANDOM (BEAKER) (test code 150 mg/dL 70-110 H = 652) HGB/HCT (H&H) - STAT [id number] 10:10:00 Test Item Value Reference Range Interpretation Comments HEMOGLOBIN (BEAKER) (test code = 8.1 g/dL 13.0-16.8 L 410) HEMATOCRIT (BEAKER) (test code = 24.0 % 40.0-50.0 L 411) CALCIUM, [id number] 10:10:00 Test Item Value Reference Range Interpretation Comments CALCIUM IONIZED (BEAKER) (test 1.31 mmol/L 1.12-1.27 H code = 698) PH, BLOOD (BEAKER) (test code = 7.37 1810) POTASSIUM-STAT [id number] 09:38:00 Test Item Value Reference Range Interpretation Comments POTASSIUM (BEAKER) (test code = 6.6 meq/L 3.6-5.5 HH 379) BLOOD GAS, [id number] 09:35:00 Test Item Value Reference Range Interpretation Comments PH ARTERIAL (BEAKER) (test code = 7.41 7.35-7.45 383) PCO2 ARTERIAL (BEAKER) (test code 35 mmHg 35-45 = 384) PO2 ARTERIAL (BEAKER) (test code 319 mmHg 80-90 H = 385) O2 SATURATION ARTERIAL (BEAKER) 99.7 % 96.0-97.0 H (test code = 386) HCO3 ARTERIAL (BEAKER) (test code 22 mmol/L 21-29 = 388) BASE EXCESS ARTERIAL (BEAKER) -2.7 mmol/L -2.0-3.0 L (test code = 387) PATIENT TEMPERATURE (BEAKER) 34.0 C (test code = 1818) FIO2 (BEAKER) (test code = 1819) 75.0 % SODIUM NA-STAT [id number] 09:35:00 Test Item Value Reference Range Interpretation Comments SODIUM (BEAKER) (test code = 381) 128 meq/L 135-148 L GLUCOSE-STAT [id number] 09:35:00 Test Item Value Reference Range Interpretation Comments GLUCOSE RANDOM (BEAKER) (test code 167 mg/dL 70-110 H = 652) HGB/HCT (H&H) - STAT [id number] 09:35:00 Test Item Value Reference Range Interpretation Comments HEMOGLOBIN (BEAKER) (test code = 8.0 g/dL 13.0-16.8 L 410) HEMATOCRIT (BEAKER) (test code = 24.0 % 40.0-50.0 L 411) GLUCOSE-STAT [id number] 09:19:00 Test Item Value Reference Range Interpretation Comments GLUCOSE RANDOM (BEAKER) (test code 170 mg/dL 70-110 H = 652) SODIUM NA-STAT [id number] 09:19:00 Test Item Value Reference Range Interpretation Comments SODIUM (BEAKER) (test code = 381) 127 meq/L 135-148 L POTASSIUM-STAT [id number] 09:19:00 Test Item Value Reference Range Interpretation Comments POTASSIUM (BEAKER) (test code = 5.7 meq/L 3.6-5.5 H 379) HGB/HCT (H&H) - STAT [id number] 09:19:00 Test Item Value Reference Range Interpretation Comments HEMOGLOBIN (BEAKER) (test code = 6.3 g/dL 13.0-16.8 L 410) HEMATOCRIT (BEAKER) (test code = 19.0 % 40.0-50.0 L 411) BLOOD GAS, [id number] 09:18:00 Test Item Value Reference Range Interpretation Comments PH ARTERIAL (BEAKER) (test code = 7.46 7.35-7.45 H 383) PCO2 ARTERIAL (BEAKER) (test code 30 mmHg 35-45 L = 384) PO2 ARTERIAL (BEAKER) (test code 282 mmHg 80-90 H = 385) O2 SATURATION ARTERIAL (BEAKER) 99.7 % 96.0-97.0 H (test code = 386) HCO3 ARTERIAL (BEAKER) (test code 22 mmol/L 21-29 = 388) BASE EXCESS ARTERIAL (BEAKER) -3.1 mmol/L -2.0-3.0 L (test code = 387) PATIENT TEMPERATURE (BEAKER) 32.5 C (test code = 1818) FIO2 (BEAKER) (test code = 1819) 65.0 % BLOOD GAS, [id number] 08:04:00 Test Item Value Reference Range Interpretation Comments PH ARTERIAL (BEAKER) (test code = 7.44 7.35-7.45 383) PCO2 ARTERIAL (BEAKER) (test code 36 mmHg 35-45 = 384) PO2 ARTERIAL (BEAKER) (test code 421 mmHg 80-90 H = 385) O2 SATURATION ARTERIAL (BEAKER) 99.8 % 96.0-97.0 H (test code = 386) HCO3 ARTERIAL (BEAKER) (test code 24 mmol/L 21-29 = 388) BASE EXCESS ARTERIAL (BEAKER) -0.3 mmol/L -2.0-3.0 (test code = 387) PATIENT TEMPERATURE (BEAKER) 37.0 C (test code = 1818) FIO2 (BEAKER) (test code = 1819) 100.0 % GLUCOSE-STAT [id number] 08:04:00 Test Item Value Reference Range Interpretation Comments GLUCOSE RANDOM (BEAKER) (test code 156 mg/dL 70-110 H = 652) HGB/HCT (H&H) - STAT [id number] 08:04:00 Test Item Value Reference Range Interpretation Comments HEMOGLOBIN (BEAKER) (test code = 11.7 g/dL 13.0-16.8 L 410) HEMATOCRIT (BEAKER) (test code = 34.0 % 40.0-50.0 L 411) CALCIUM, [id number] 08:03:00 Test Item Value Reference Range Interpretation Comments CALCIUM IONIZED (BEAKER) (test 1.17 mmol/L 1.12-1.27 code = 698) PH, BLOOD (BEAKER) (test code = 7.44 1810) SODIUM NA-STAT [id number] 08:02:00 Test Item Value Reference Range Interpretation Comments SODIUM (BEAKER) (test code = 381) 135 meq/L 135-148 POTASSIUM-STAT [id number] 08:02:00 Test Item Value Reference Range Interpretation Comments POTASSIUM (BEAKER) (test code = 4.0 meq/L 3.6-5.5 379) POCT-GLUCOSE [id number] 06:12:00 Test Item Value Reference Range Interpretation Comments POC-GLUCOSE METER 134 mg/dL 70-110 H TESTED AT [facility] [address] (BEAKER) (test code = [place] 1538) [address] LIPID [id number] 05:56:00 Test Item Value Reference Range Interpretation Comments TRIGLYCERIDES (BEAKER) (test code = 129 mg/dL 540) CHOLESTEROL (BEAKER) (test code = 131 mg/dL 631) HDL CHOLESTEROL (BEAKER) (test code 21 mg/dL = 976) LDL CHOLESTEROL CALCULATED (BEAKER) 84 mg/dL (test code = 633) Triglyceride Reference Range: Low Risk <150 Borderline 150-199 High Risk 200- 499 Very High Risk >=500Cholesterol Reference Range: Low Risk <200 Borderline 200-239 High Risk >240HDL Cholesterol Reference Range: Low Risk >=60 High Risk <40LDL Cholesterol Reference Range: Optimal <100 Near Optimal 100-129 Borderline 130-159 High 160-189 Very High >=190COMPREHENSIVE METABOLIC [id number] 05:56:00 Test Item Value Reference Range Interpretation Comments TOTAL PROTEIN 6.5 gm/dL 6.0-8.3 (BEAKER) (test code = 770) ALBUMIN (BEAKER) 3.9 g/dL 3.5-5.0 (test code = 1145) ALKALINE PHOSPHATASE 62 U/L 40-150 (BEAKER) (test code = 346) BILIRUBIN TOTAL 0.5 mg/dL 0.2-1.2 (BEAKER) (test code = 377) SODIUM (BEAKER) (test 139 meq/L 136-145 code = 381) POTASSIUM (BEAKER) 4.2 meq/L 3.5-5.1 (test code = 379) CHLORIDE (BEAKER) 106 meq/L 98-107 (test code = 382) CO2 (BEAKER) (test 22 meq/L 22-29 code = 355) BLOOD UREA NITROGEN 28 mg/dL 7-21 H (BEAKER) (test code = 354) CREATININE (BEAKER) 1.25 mg/dL 0.57-1.25 (test code = 358) GLUCOSE RANDOM 109 mg/dL 70-105 H (BEAKER) (test code = 652) CALCIUM (BEAKER) 9.5 mg/dL 8.4-10.2 (test code = 697) AST (SGOT) (BEAKER) 21 U/L 5-34 (test code = 353) ALT (SGPT) (BEAKER) 25 U/L 6-55 (test code = 347) EGFR (BEAKER) (test 58 mL/min/1.73 ESTIMA SATURNINO GFR IS code = 1092) sq m NOT ACCURATE CREATININE CLEARANCE IN PREDICTING GLOMERULAR FILTRATION RATE . ESTIMATED GFR I S NOT APPLICABLE FOR DIALYSIS PATIEN NOHEMI. [id number] 05:51:00 Test Item Value Reference Range Interpretation Comments PARTIAL THROMBOPLASTIN TIME 54.2 seconds 22.5-36.0 H (BEAKER) (test code = 760) RAD, CHEST, 1 VIEW, NON [id number] 05:39:00Reason for exam:->Pre-opShould this be performed at the bedside?->YesFINAL REPORT RAD, CHEST, 1 VIEW, NON DEPT INDICATION: Pre-op COMPARISON: None FINDINGS: Portable frontal view of the chest. IMPRESSION: Support Lines: None Lungs and pleura: Clear lungs. No effusion. No pneumothorax.Heart and mediastinum: Unremarkable cardiomediastinal contours.Additional findings: None. Signed: JR Saldaña Robert MDReport Verified Date/Time: 11/17/2016 05:39:15 Reading Location: [place] [id number] CT Body Reading Room CBC W/PLT COUNT & AUTO [id number] 05:28:00 Test Item Value Reference Range Interpretation Comments WHITE BLOOD CELL COUNT (BEAKER) 6.5 K/ L 3.5-10.5 (test code = 775) RED BLOOD CELL COUNT (BEAKER) 3.62 M/ L 4.63-6.08 L (test code = 761) HEMOGLOBIN (BEAKER) (test code = 11.2 GM/DL 13.7-17.5 L 410) HEMATOCRIT (BEAKER) (test code = 32.2 % 40.1-51.0 L 411) MEAN CORPUSCULAR VOLUME (BEAKER) 89.0 fL 79.0-92.2 (test code = 753) MEAN CORPUSCULAR HEMOGLOBIN 30.9 pg 25.7-32.2 (BEAKER) (test code = 751) MEAN CORPUSCULAR HEMOGLOBIN CONC 34.8 GM/DL 32.3-36.5 (BEAKER) (test code = 752) RED CELL DISTRIBUTION WIDTH 13.2 % 11.6-14.4 (BEAKER) (test code = 412) PLATELET COUNT (BEAKER) (test 180 K/CU MM 150-450 code = 756) MEAN PLATELET VOLUME (BEAKER) 9.1 fL 9.4-12.4 L (test code = 754) NUCLEATED RED BLOOD CELLS 0 /100 WBC 0-0 (BEAKER) (test code = 413) NEUTROPHILS RELATIVE PERCENT 66 % (BEAKER) (test code = 429) LYMPHOCYTES RELATIVE PERCENT 20 % (BEAKER) (test code = 430) MONOCYTES RELATIVE PERCENT 9 % (BEAKER) (test code = 431) EOSINOPHILS RELATIVE PERCENT 4 % (BEAKER) (test code = 432) BASOPHILS RELATIVE PERCENT 1 % (BEAKER) (test code = 437) NEUTROPHILS ABSOLUTE COUNT 4.30 K/ L 1.78-5.38 (BEAKER) (test code = 670) LYMPHOCYTES ABSOLUTE COUNT 1.28 K/ L 1.32-3.57 L (BEAKER) (test code = 414) MONOCYTES ABSOLUTE COUNT (BEAKER) 0.60 K/ L 0.30-0.82 (test code = 415) EOSINOPHILS ABSOLUTE COUNT 0.24 K/ L 0.04-0.54 (BEAKER) (test code = 416) BASOPHILS ABSOLUTE COUNT (BEAKER) 0.05 K/ L 0.01-0.08 (test code = 417) IMMATURE GRANULOCYTES-RELATIVE 1 % 0-1 PERCENT (BEAKER) (test code = 2801) POCT-GLUCOSE [id number] 21:48:00 Test Item Value Reference Range Interpretation Comments POC-GLUCOSE METER 148 mg/dL 70-110 H TESTED AT [facility] 6720 (BEAKER) (test code = [place] 1538) [id number] HEMOGLOBIN [id number] 19:52:00 Test Item Value Reference Range Interpretation Comments HEMOGLOBIN A1C (BEAKER) (test code = 6.0 % 4.3-6.1 368) PROTHROMBIN [id number] 17:53:00 Test Item Value Reference Range Interpretation Comments PROTIME (BEAKER) (test code = 13.8 seconds 11.7-14.7 759) INR (BEAKER) (test code = 370) 1.1 <=5.9 RECOMMENDED COUMADIN/WARFARIN INR THERAPY RANGESSTANDARD DOSE: 2.0 - 3.0 Includes: PROPHYLAXIS for venous thrombosis, systemic embolization; TREATMENT for venous thrombosis and/or pulmonary embolus.HIGH RISK: Target INR is 2.5-3.5 for patients with mechanical heart valves.[id number] 17:53:00 Test Item Value Reference Range Interpretation Comments FIBRINOGEN LEVEL (BEAKER) (test 406 mg/dl 225-434 code = 658) [id number] 17:53:00 Test Item Value Reference Range Interpretation Comments PARTIAL THROMBOPLASTIN TIME 31.1 seconds 22.5-36.0 (BEAKER) (test code = 760) POCT-GLUCOSE [id number] 17:25:00 Test Item Value Reference Range Interpretation Comments POC-GLUCOSE METER 95 mg/dL 70-110 TESTED AT [facility] 6720 (BEAKER) (test code = [place] [address] 1538) COMPREHENSIVE METABOLIC [id number] 17:21:00 Test Item Value Reference Range Interpretation Comments TOTAL PROTEIN 7.0 gm/dL 6.0-8.3 (BEAKER) (test code = 770) ALBUMIN (BEAKER) 4.2 g/dL 3.5-5.0 (test code = 1145) ALKALINE PHOSPHATASE 69 U/L 40-150 (BEAKER) (test code = 346) BILIRUBIN TOTAL 0.4 mg/dL 0.2-1.2 (BEAKER) (test code = 377) SODIUM (BEAKER) (test 140 meq/L 136-145 code = 381) POTASSIUM (BEAKER) 4.4 meq/L 3.5-5.1 (test code = 379) CHLORIDE (BEAKER) 105 meq/L 98-107 (test code = 382) CO2 (BEAKER) (test 27 meq/L 22-29 code = 355) BLOOD UREA NITROGEN 28 mg/dL 7-21 H (BEAKER) (test code = 354) CREATININE (BEAKER) 1.22 mg/dL 0.57-1.25 (test code = 358) GLUCOSE RANDOM 101 mg/dL 70-105 (BEAKER) (test code = 652) CALCIUM (BEAKER) 9.7 mg/dL 8.4-10.2 (test code = 697) AST (SGOT) (BEAKER) 19 U/L 5-34 (test code = 353) ALT (SGPT) (BEAKER) 26 U/L 6-55 (test code = 347) EGFR (BEAKER) (test 60 mL/min/1.73 ESTIMA SATURNINO GFR IS code = 1092) sq m NOT ACCURATE CREATININE CLEARANCE IN PREDICTING GLOMERULAR FILTRATION RATE . ESTIMATED GFR I S NOT APPLICABLE FOR DIALYSIS PATIEN TS. PLATELET [id number] 16:59:00 Test Item Value Reference Range Interpretation Comments PLATELET COUNT (BEAKER) (test 194 K/CU MM 150-450 code = 756) CBC W/PLT COUNT & AUTO [id number] 16:59:00 Test Item Value Reference Range Interpretation Comments WHITE BLOOD CELL COUNT (BEAKER) 6.6 K/ L 3.5-10.5 (test code = 775) RED BLOOD CELL COUNT (BEAKER) 3.81 M/ L 4.63-6.08 L (test code = 761) HEMOGLOBIN (BEAKER) (test code = 11.5 GM/DL 13.7-17.5 L 410) HEMATOCRIT (BEAKER) (test code = 34.2 % 40.1-51.0 L 411) MEAN CORPUSCULAR VOLUME (BEAKER) 89.8 fL 79.0-92.2 (test code = 753) MEAN CORPUSCULAR HEMOGLOBIN 30.2 pg 25.7-32.2 (BEAKER) (test code = 751) MEAN CORPUSCULAR HEMOGLOBIN CONC 33.6 GM/DL 32.3-36.5 (BEAKER) (test code = 752) RED CELL DISTRIBUTION WIDTH 13.2 % 11.6-14.4 (BEAKER) (test code = 412) PLATELET COUNT (BEAKER) (test 194 K/CU MM 150-450 code = 756) MEAN PLATELET VOLUME (BEAKER) 8.9 fL 9.4-12.4 L (test code = 754) NUCLEATED RED BLOOD CELLS 0 /100 WBC 0-0 (BEAKER) (test code = 413) NEUTROPHILS RELATIVE PERCENT 74 % (BEAKER) (test code = 429) LYMPHOCYTES RELATIVE PERCENT 15 % (BEAKER) (test code = 430) MONOCYTES RELATIVE PERCENT 8 % (BEAKER) (test code = 431) EOSINOPHILS RELATIVE PERCENT 2 % (BEAKER) (test code = 432) BASOPHILS RELATIVE PERCENT 1 % (BEAKER) (test code = 437) NEUTROPHILS ABSOLUTE COUNT 4.86 K/ L 1.78-5.38 (BEAKER) (test code = 670) LYMPHOCYTES ABSOLUTE COUNT 1.01 K/ L 1.32-3.57 L (BEAKER) (test code = 414) MONOCYTES ABSOLUTE COUNT (BEAKER) 0.50 K/ L 0.30-0.82 (test code = 415) EOSINOPHILS ABSOLUTE COUNT 0.16 K/ L 0.04-0.54 ([facility]) (test code = 416) BASOPHILS ABSOLUTE COUNT ([facility]) 0.03 K/ L 0.01-0.08 (test code = 417) IMMATURE GRANULOCYTES-RELATIVE 1 % 0-1 PERCENT ([facility]) (test code = 2801) POCT-GLUCOSE [id number] 14:11:00 Test Item Value Reference Range Interpretation Comments POC-GLUCOSE METER 120 mg/dL 70-110 H TESTED AT [facility] 67[address] ([facility]) (test code = [place] 1538) [id number]
[2022-05-12 00:17] LABS: Absolute Lymphocytes (CBC) 1.5 K/uL (0.7-4.9); Hematocrit 32.2 % (39.6-49.0); Lymphocytes % 17.5 % (15.3-44.8); MCV 83.9 fL (80-100); MPV 7.1 fL (7.6-11.3); RBC Red Blood Cell Count 3.84 M/uL (4.33-5.43)
[2022-05-12 00:31] LABS: ALT/SGPT 28 U/L (16-61); AST/SGOT 14 U/L (15-37); Albumin 3.9 g/dL (3.4-5.0); Alkaline Phosphatase 43 U/L (45-117); BUN Blood Urea Nitrogen 32 mg/dL (7-18); Bicarbonate 24 mEq/L (21-32); Bilirubin Total 0.2 mg/dL (0.2-1.0); Glomerular Filtration Rate 38 ml/min (=/>90); Glucose Level 266 mg/dL (74-106); Magnesium 1.8 mg/dL (1.6-2.4); NT PRO-BNP 82 pg/mL (<125); Potassium 4.2 mEq/L (3.5-5.1); Protein, Total 6.8 g/dL (6.4-8.2); Sodium Level 138 mEq/L (136-145); Troponin High Sensitivity 6.3 pg/mL (<58.9)
[2022-05-12 00:34] LABS: Bilirubin Direct < 0.1 mg/dL (0-0.2)
[2022-05-12] MEDS ORDERED: ASPIRIN 81 MG CHEWABLE TABLET ONE ×2 (01:08→08:24)
[2022-05-12 01:30] LABS: Blood Morphology Comment NOT SEEN (NOT SEEN); Platelet Estimate ADEQ
[2022-05-12] MEDS ORDERED: ONDANSETRON 4 MG/2 ML VIAL IV PRN (02:40)
[2022-05-12 02:44] VITALS: BMI 22.1
[2022-05-12] MEDS ORDERED: PNEUMOCOCCAL VACCINE 0.5 ML IMVAC ONE (08:00)
--- NOTE | 2022-05-12 08:43 | EDPHYS ---
Physician Documentation [facility] Name: Vj Yoon Age: 72 yrs Sex: Male : 1950 Arrival Date: 05/11/2022 Time: 22:34 Bed 14 Private MD: Tk Cox ED Physician Chase Rossi HPI: 05/11 23:36 This 72 yrs old Male presents to ER via Ambulatory with complaints of Chest rn Pain. 23:36 The patient or guardian reports chest pain that is located primarily in the substernal rn area. Onset: 1 hour(s) ago. The pain radiates to both arms. Associated signs and symptoms: Pertinent positives: nausea, Pertinent negatives: cough, diaphoresis, headache, near syncope, palpitations, shortness of breath, syncope, vomiting. The chest pain is described as a heaviness. Duration: The patient or guardian reports a single episode, that is now resolved. Modifying factors: The symptoms are alleviated by nothing. the symptoms are aggravated by nothing. Severity of pain: At its worst the pain was moderate in the emergency department the pain has resolved. The patient has experienced a previous episode. The patient has not recently seen a physician. Pt reports hx of stents and bypass, had chest pain that began at 10pm, resolved by 10:40, no fever/recent illness/cough/vomiting. No trauma. No hx of dvt/PE. . Historical: - Allergies: 22:55 unknown cardiac medication; lg3 - Home Meds: 22:55 aspirin 81 mg Oral chew 1 tab once daily [Active]; atorvastatin 10 mg Oral tab 1 tab lg3 once daily [Active]; clopidogrel 75 mg Oral tab 1 tab once daily [Active]; Diovan 320 mg Oral tab 1 tab once daily [Active]; metformin 1,000 mg Oral tab 1 tab 2 times per day [Active]; metoprolol tartrate 75 mg Oral tab 1 tab 2 times per day [Active]; - PMHx: 22:55 Diabetes - NIDDM; High Cholesterol; Hypertension; lg3 - PSHx: 22:55 stent X2; triple bypass; inguinal hernia repair; lg3 - Immunization history:: Adult Immunizations up to date, Client reports receiving the 2nd dose of the Covid vaccine, Pneumococcal vaccine is up to date, Flu vaccine is up to date. - Social history:: Smoking status: Patient denies any tobacco usage or history of. Patient uses alcohol, occasionally. - Family history:: not pertinent. - Hospitalizations: : No recent hospitalization is reported. ROS: 23:36 Constitutional: Negative for fever, chills, and weight loss, Eyes: Negative for injury, rn pain, redness, and discharge, Neck: Negative for injury, pain, and swelling, Cardiovascular: Negative for palpitations, and edema, Respiratory: Negative for shortness of breath, cough, wheezing, and pleuritic chest pain, Abdomen/GI: Negative for abdominal pain, diarrhea, and constipation, Back: Negative for injury and pain, MS/Extremity: Negative for injury and deformity, Skin: Negative for injury, rash, and discoloration, Neuro: Negative for headache, weakness, numbness, tingling, and seizure. Exam: 23:36 Constitutional: This is a well developed, well nourished patient who is awake, alert, rn and in no acute distress. Head/Face: Normocephalic, atraumatic. Cardiovascular: Regular rate and rhythm. No pulse deficits. Respiratory: No increased work of breathing, no retractions or nasal flaring. Skin: Warm, dry MS/ Extremity: Pulses equal, no cyanosis Neuro: Awake and alert, GCS 15 05/12 00:23 ECG was reviewed by the Attending Physician. rn Vital Signs: 05/11 22:54 BP 161 / 69; Pulse 75; Resp 18 S; Temp 97.9(O); Pulse Ox 99% on R/A; Weight 54.43 kg lg3 (R); Height 5 ft. 3 in. (R); Pain 8/10; 05/12 00:07 BP 163 / 79; Pulse 66; Resp 18 S; Pulse Ox 99% on R/A; ha1 00:50 BP 154 / 78; Pulse 70; Resp 18 S; Pulse Ox 99% on R/A; ha1 01:50 BP 143 / 74; Pulse 67; Resp 16 S; Pulse Ox 97% on R/A; ha1 05/11 22:54 Body Mass Index 21.26 (54.43 kg, 160.02 cm) lg3 05/11 22:54 Pain Scale: Adult lg3 MDM: 05/11 22:37 Patient medically screened. rn 05/12 00:13 ED course: Pt took aspirin and plavix earlier today. rn 01:01 Differential diagnosis: acute myocardial infarction, acute pericarditis, anxiety, rn coronary artery disease congestive heart failure pleurisy, pneumonia, pneumothorax, pulmonary embolus, stable angina, unstable angina. HEART Score: History: Highly Suspicious (2), ECG: Non specific repolarization disturbance / LBTB / PM (1), Age: > or = 65 years (2), Risk Factors: > or = 3 Risk factors for atherosclerotic disease (2), Troponin: < or = 1 x Normal Limit (0), Total Score = 7. The patient was given aspirin in the Emergency Department. 01:02 Data reviewed: vital signs, nurses notes, lab test result(s), EKG, radiologic studies, rn plain films, and as a result, I will admit patient. Consideration of Admission/Observation Patient was admitted/placed on observation. Escalation of care including admission/observation considered. Independent interpretation of the following test(s) in the Emergency Department EKG: See my EKG interpretation above X-Ray: My interpretation is CXR images neg for pneumothorax or pneumonia per my interpretation. Counseling: I had a detailed discussion with the patient and/or guardian regarding: the historical points, exam findings, and any diagnostic results supporting the discharge/admit diagnosis, lab results, radiology results, the need for further work-up and treatment in the hospital. Response to treatment: the patient's symptoms have markedly improved after treatment, and as a result, I will admit patient. 05/11 22:49 Order name: Basic Metabolic Panel rn 05/11 22:49 Order name: CBC with Diff rn 05/11 22:49 Order name: D-Dimer rn 05/11 22:49 Order name: LFT's rn 05/11 22:49 Order name: Magnesium rn 05/11 22:49 Order name: NT PRO-BNP rn 05/11 22:49 Order name: Troponin HS rn 05/12 01:15 Order name: SARS RAPID ha1 05/12 08:26 Order name: CBC with Automated Diff EDIL 05/12 08:26 Order name: D-Dimer EDIL 05/12 08:26 Order name: Basic Metabolic Panel EDIL 05/12 08:26 Order name: Liver (Hepatic) Function EDIL 05/12 08:26 Order name: Troponin High Sensitivity EDIL 05/12 08:26 Order name: NT PRO-BNP EDIL 05/12 08:26 Order name: Magnesium EDIL 05/12 08:26 Order name: Manual Differential EDIL 05/12 08:28 Order name: Troponin High Sensitivity [facility] 05/12 10:48 Order name: Troponin High Sensitivity [facility] 05/11 22:49 Order name: XRAY Chest (1 view) rn 05/11 22:49 Order name: EKG; Complete Time: 08:28 rn 05/11 22:49 Order name: Cardiac monitoring; Complete Time: 00:01 rn 05/11 22:49 Order name: EKG - Nurse/Tech; Complete Time: 00:16 rn 05/11 22:49 Order name: IV Saline Lock; Complete Time: 00:01 rn 05/11 22:49 Order name: Labs collected and sent; Complete Time: 00:02 rn 05/11 22:49 Order name: O2 Per Protocol; Complete Time: 00:02 rn 05/11 22:49 Order name: O2 Sat Monitoring; Complete Time: 00:02 rn EC: Rate is 65 beats/min. Rhythm is regular. QRS [address] is Normal. ID interval is normal. QRS rn interval is normal. QT interval is normal. No Q waves. T waves are Inverted in lead aVL. T waves are Flattened in lead I. No ST changes noted. Clinical impression: NSR w/ Non-specific ST/T Changes. Interpreted by me. Reviewed by me. Administered Medications: 01:06 Drug: Aspirin PO Chewable Tablet 81 mg Route: PO; ha1 01:30 Follow up: Response: No adverse reaction ha1 Disposition Summary: 05/12/22 01:08 Hospitalization Ordered Hospitalization Status: Observation rn Provider: Tk Cox rn Condition: Stable rn Problem: new rn Symptoms: have improved rn Bed/Room Type: Standard rn Location: [facility] ER HOLD(05/12/22 02:05) cg Room Assignment: ERHOLD-(05/12/22 02:05) cg Diagnosis - Chest pain, unspecified rn Forms: - Medication Reconciliation Form rn - SBAR form rn Signatures: Dispatcher [employer] EDChase Estrada MD MD rn Garcia, Cindy RN Shaylee Bennett RN RN 3 Stefani Steven, RN RN ha1 Corrections: (The following items were deleted from the chart) 02:05 01:08 Telemetry/MedSurg (observation) rn cg 02:05 01:08 rn cg
--- NOTE | 2022-05-12 08:43 | ER ---
Nurse's Notes [facility] Name: Vj Yoon Age: 72 yrs Sex: Male : 1950 Arrival Date: 05/11/2022 Time: 22:34 Bed 14 Private MD: Tk Cox Diagnosis: Chest pain, unspecified Presentation: 05/11 22:54 Chief complaint: Patient states: chest pain starting around 2215 radiating to both lg3 arms. Coronavirus screen: Client denies travel out of the [place] in the last 14 days. At this time, the client does not indicate any symptoms associated with coronavirus-19. Ebola Screen: No symptoms or risks identified at this time. Initial Sepsis Screen: Does the patient meet any 2 criteria? No. Patient's initial sepsis screen is negative. Does the patient have a suspected source of infection? No. Patient's initial sepsis screen is negative. Risk Assessment: Do you want to hurt yourself or someone else? Patient reports no desire to harm self or others. Onset of symptoms was May 11, 2022. 22:54 Method Of Arrival: Ambulatory lg3 22:54 Acuity: BLAYNE 3 lg3 Triage Assessment: 22:55 General: Appears in no apparent distress. comfortable, Behavior is calm, cooperative. lg3 Pain: Complains of pain in chest Pain radiates to right arm and left arm. EENT: No deficits noted. No signs and/or symptoms were reported regarding the EENT system. Neuro: No deficits noted. Banda Agitation-Sedation Scale (RASS): 0 - Alert and Calm Level of Consciousness is awake, alert, obeys commands, Oriented to person, place, time, situation. Cardiovascular: Reports chest pain, Denies lightheadedness, shortness of breath. Respiratory: No deficits noted. Airway is patent Respiratory effort is even, unlabored, Respiratory pattern is regular, symmetrical. GI: No deficits noted. No signs and/or symptoms were reported involving the gastrointestinal system. : No deficits noted. No signs and/or symptoms were reported regarding the genitourinary system. Derm: No deficits noted. No signs and/or symptoms reported regarding the dermatologic system. Skin is intact, is healthy with good turgor, Skin is dry, Skin is normal, Skin temperature is warm. Musculoskeletal: No deficits noted. No signs and/or symptoms reported regarding the musculoskeletal system. Circulation, motion, and sensation intact. Range of motion: intact in all extremities. Historical: - Allergies: 22:55 unknown cardiac medication; lg3 - Home Meds: :55 aspirin 81 mg Oral chew 1 tab once daily [Active]; atorvastatin 10 mg Oral tab 1 tab lg3 once daily [Active]; clopidogrel 75 mg Oral tab 1 tab once daily [Active]; Diovan 320 mg Oral tab 1 tab once daily [Active]; metformin 1,000 mg Oral tab 1 tab 2 times per day [Active]; metoprolol tartrate 75 mg Oral tab 1 tab 2 times per day [Active]; - PMHx: :55 Diabetes - NIDDM; High Cholesterol; Hypertension; lg3 - PSHx: :55 stent X2; triple bypass; inguinal hernia repair; lg3 - Immunization history:: Adult Immunizations up to date, Client reports receiving the 2nd dose of the Covid vaccine, Pneumococcal vaccine is up to date, Flu vaccine is up to date. - Social history:: Smoking status: Patient denies any tobacco usage or history of. Patient uses alcohol, occasionally. - Family history:: not pertinent. - Hospitalizations: : No recent hospitalization is reported. Screenin:55 [facility] ED Fall Risk Assessment (Adult) History of falling in the last 3 months, ha1 including since admission No falls in past 3 months (0 pts) Confusion or Disorientation No (0 pts) Intoxicated or Sedated No (0 pts) Impaired Gait No (0 pts) Mobility Assist Device Used No (0 pt) Altered Elimination No (0 pt) Score/Fall Risk Level 0 - 2 = Low Risk Oriented to surroundings, Maintained a safe environment, Educated pt \\T\\ family on fall prevention, incl call for assistance when getting out of bed. 05/12 01:07 Abuse screen: Denies threats or abuse. Denies injuries from another. Nutritional ha1 screening: No deficits noted. Tuberculosis screening: No symptoms or risk factors identified. Assessment: 05/11 22:50 General: Appears comfortable, Behavior is calm, cooperative. Pain: Denies pain. Neuro: ha1 Level of Consciousness is awake, alert, obeys commands, Oriented to person, place, time, situation. Cardiovascular: Heart tones S1 S2 present Capillary refill < 3 seconds Patient's skin is warm and dry. Respiratory: Reports Patient states " I felt chest pain when I was home but not now". Airway is patent Respiratory effort is even, unlabored, Respiratory pattern is regular, symmetrical. GI: No signs and/or symptoms were reported involving the gastrointestinal system. Abdomen is flat, non-distended. : No signs and/or symptoms were reported regarding the genitourinary system. Derm: Skin is pink, warm \\T\\ dry. Musculoskeletal: Circulation, motion, and sensation intact. Range of motion: intact in all extremities. 23:50 Reassessment: Patient and/or family updated on plan of care and expected duration. Pain ha1 level reassessed. Patient is alert, oriented x 3, equal unlabored respirations, skin warm/dry/pink. Patient denies pain at this time. 05/12 00:50 Reassessment: Patient and/or family updated on plan of care and expected duration. Pain ha1 level reassessed. Patient is alert, oriented x 3, equal unlabored respirations, skin warm/dry/pink. Patient denies pain at this time. 01:50 Reassessment: Patient and/or family updated on plan of care and expected duration. Pain ha1 level reassessed. Patient is alert, oriented x 3, equal unlabored respirations, skin warm/dry/pink. Patient denies pain at this time. 14:09 Pain: Pain began 2-3 days ago. ll1 Vital Signs: 05/11 22:54 BP 161 / 69; Pulse 75; Resp 18 S; Temp 97.9(O); Pulse Ox 99% on R/A; Weight 54.43 kg lg3 (R); Height 5 ft. 3 in. (R); Pain 8/10; 05/12 00:07 BP 163 / 79; Pulse 66; Resp 18 S; Pulse Ox 99% on R/A; ha1 00:50 BP 154 / 78; Pulse 70; Resp 18 S; Pulse Ox 99% on R/A; ha1 01:50 BP 143 / 74; Pulse 67; Resp 16 S; Pulse Ox 97% on R/A; ha1 05/11 22:54 Body Mass Index 21.26 (54.43 kg, 160.02 cm) lg3 05/11 22:54 Pain Scale: Adult lg3 ED Course: 05/11 22:34 Patient arrived in ED. es 22:35 Tk Cox MD is Private Physician. es 22:37 Chase Rossi MD is Attending Physician. rn 22:55 Triage completed. lg3 22:55 Arm band placed on left wrist. lg3 22:55 Patient has correct armband on for positive identification. Bed in low position. Call ha1 light in reach. Side rails up X 1. 22:55 Client placed on continuous cardiac and pulse oximetry monitoring. NIBP monitoring ha1 applied. 23:50 Inserted saline lock: 20 gauge in right forearm, using aseptic technique. Blood ha1 collected. 05/12 00:01 Stefani Steven, RN is Primary Nurse. ha1 01:07 Tk Cox MD is Hospitalizing Provider. rn 01:07 Patient maintains SpO2 saturation greater than 95% on room air. ha1 02:25 No provider procedures requiring assistance completed. Patient admitted, IV remains in ha1 place. Administered Medications: 01:06 Drug: Aspirin PO Chewable Tablet 81 mg Route: PO; ha1 01:30 Follow up: Response: No adverse reaction ha1 Medication: 02:26 VIS not applicable for this client. ha1 Outcome: 01:08 Decision to Hospitalize by Provider. rn 14:08 Patient left the ED. ll1 14:09 Admitted to ER Hold. Please see [facility] for further documentation. ll1 14:09 Condition: stable 14:09 Instructed on the need for admit. Signatures: Azul Horton Roman, MD MD rn Gibson, Lacie, RN RN lg3 Art Kim RN RN 1 Stefani Steven RN RN [facility]
[2022-05-12] MEDS ORDERED: ASPIRIN EC 81 MG TAB PO SCH (09:00)
--- NOTE | 2022-05-12 12:13 | EKG ---
Test Date: 2022-05-12 Test Time: 00:13:46 President + Publisher: JAY JAY MEASUREMENT RESULTS: Intervals: Rate: 65 ID: [id number] QRSD: 78 QT: 404 QTc: 420 [place]: P: 47 ID: [id number] QRS: 7 T: 82 INTERPRETIVE STATEMENTS: Normal sinus rhythm Normal ECG Compared to ECG 12/30/2020 15:58:03 No significant changes Electronically Signed On 05-12-22 12:12:40 CDT by Aroldo El
--- NOTE | 2022-05-12 12:23 | CON ---
Date of Consultation: 05/12/2022 Reason For Consultation: Chest pain. History Of Present Illness: This is a 72-year-old male, history of coronary artery disease status po st bypass surgery in the past, stents initially and then bypass surgery in 2017, comes in with chest pain that was substernal and with the extreme exertion. The pain is short-lived. No nausea or diaph oresis. No cough or shortness of breath. Past Medical History: Coronary artery disease, diabetes, dyslipidemia, hypertension. Past Surgical History: Multiple cardiac stents and then triple-vessel bypass in 2017 and hernia repa ir. Medications: Refer to reconciliation sheet for detailed list. Allergies: JASMEET INHIBITORS. Family History: No premature coronary artery disease or cancer. Social History: He does not smoke or drink. Does not use any drugs. Review of Systems: All systems reviewed and they were negative except what mentioned in HPI. Physical Examination: Vital Signs: Reviewed. Head and Neck: Pupils are equal, reactive to light. Intact eye movements. No JVD. No cervical lym phadenopathy. Neck is supple. Thyroid is not enlarged. Lungs: Clear to auscultation bilaterally. No rhonchi, wheezing, or crackles. No accessory muscle u se. Heart: Regular rate and rhythm. No extra sounds. Abdomen: Soft, nontender. Bowel sounds positive. No organomegaly. No masses or hernia. No rigidi ty or rebound. Extremities: No edema, clubbing, or cyanosis. Intact pulses. Skin: No rash. Neurologic: Alert, awake, oriented x3. No acute focal deficits appreciated. Investigations: Cardiac enzymes x3 are negative. BUN 32, creatinine 1.8, and hemoglobin is 10.9. Assessment And Recommendations: 1.Chest pain, known history of coronary artery disease. Cardiac enzymes are negative. He has been pain free. The patient can be released from Cardiology standpoint. Continue home medications. Foll ow up with me in the office and we will obtain a stress test on him as an outpatient basis. 2.Renal failure. His creatinine is around baseline. Recommend Nephrology evaluation. The patient can be released from Cardiology standpoint, follow up with me as an outpatient. 3.Hypertension. Blood pressure is acceptable. Continue current management. SR/MODL Voice ID: [id number] Report ID: [id number]
[2022-05-12 12:49] VITALS: BP 163/72; TEMP 98
[2022-05-12 16:53] VITALS: O2SAT 97
[2022-05-12] MEDS ORDERED: METFORMIN HCL 500 MG TAB PO SCH (17:00)
--- NOTE | 2022-05-12 17:51 | RAD REPORT ---
EXAM DESCRIPTION: RAD - Chest Single View - 05/12/2022 6:53 am CLINICAL HISTORY: CHEST PAIN, PALPITATIONS TECHNIQUE: Frontal view of the chest. COMPARISON: No relevant prior studies available. FINDINGS: Lungs: Unremarkable. No consolidation. Pleural space: Unremarkable. No pneumothorax. Heart: Prior CABG. Mediastinum: Unremarkable. Bones/joints: Prior median sternotomy. Vasculature: Thoracic aortic atherosclerosis. IMPRESSION: No acute disease. Electronically signed by: Todd Ley MD 05/12/2022 1:36 AM CDT Due to temporary technical issues with the PACS/Fluency reporting system, reports are being signed by the in house radiologists without review as a courtesy to insure prompt reporting. The interpreting radiologist is fully responsible for the content of the report.
[2022-05-12] MEDS ORDERED: ATORVASTATIN 40 MG TAB PO SCH (21:00)
[2022-05-12] MEDS ORDERED: METOPROLOL TAR 50 MG TAB PO SCH (21:00)
[2022-05-12] MEDS ORDERED: PENTOXIFYLLINE ER 400 MG TAB PO SCH (21:00)
--- NOTE | 2022-05-12 23:35 | DS ---
Date of Discharge: 05/12/2022 Hospital Course: The patient was admitted to the hospital on 05/11 after presenting to the emergency room with some central chest pain radiating down both arms. No shortness of breath. The patient st ates he has had similar episodes in the past; however, he has had some tachycardia with it at this ti me. He felt he was bradycardic by his numbers and therefore he became more alarmed and presented to the emergency room. Past history includes multiple cardiac workups including a stress test about 6 m onths ago, which was negative. He was admitted, placed on telemetry, seen by Cardiology who felt selwyn t if he had negative enzymes x2, he could be discharged and scheduled for a stress test as an outpati ent. In fact, his blood work was compatible other than the fact that his creatinine was slightly bry vated and has had some elevations in the past. He is asymptomatic. He will be discharged to [facility] his usual medication and follow up with quality director in a few weeks for stress test and in my offic e next week for repeat creatinine. Possibility of this being coronary artery disease spasm is possib le although it could also be muscular as the patient states he was quite active prior to this. How er, he states he has been quite active in the past also and has not had these symptoms with considera ble amount of chest pain. At this stage, unknown etiology, possible angina versus muscular. HR/MODL Voice ID: [id number] Report ID: [id number]
[2022-05-13] MEDS ORDERED: CLOPIDOGREL 75 MG TABLET PO SCH (09:00)
[2022-05-13] MEDS ORDERED: AMLODIPINE 5 MG TAB PO SCH (09:00)
[2022-05-13] MEDS ORDERED: ASPIRIN EC 81 MG TAB PO SCH (09:00)
== END 2022-05-12 14:13 | disposition home or self-care (01) ==
LOC: ER 22:30 → ERHOLD 05-12 01:58
PROVIDERS: ADMIT Family Medicine; ATTEND Family Medicine
DX: R07.9 Chest pain, unspecified (principal); N19 Unspecified kidney failure; I25.10 Atherosclerotic heart disease of native coronary artery without angina pectoris; E11.9 Type 2 diabetes mellitus without complications; E78.5 Hyperlipidemia, unspecified; I10 Essential (primary) hypertension; Z20.822 Contact with and (suspected) exposure to COVID-19
CPT/HCPCS: 36415; 71045; 80048; 80076; 83735; 83880; 84484; 85025; 85379; 93005; G0378

== ENCOUNTER → 2023-02-18 | Emergency (ER) | payer OTHER ==
--- NOTE | 2023-02-18 13:44 | ER ---
Nurse's Notes [facility] Name: Vj Yoon Age: 73 yrs Sex: Male : 1950 Arrival Date: 02/18/2023 Time: 13:28 Bed IW6 Private MD: Diagnosis: Local infection of the skin and subcutaneous tissue, unspecified Presentation: 02/18 13:39 Chief complaint: Patient states: SWOLLEN PALATE x2 DAYS. Coronavirus screen: At this bp time, the client does not indicate any symptoms associated with coronavirus-19. Ebola Screen: No symptoms or risks identified at this time. Initial Sepsis Screen: Does the patient meet any 2 criteria? No. Patient's initial sepsis screen is negative. Does the patient have a suspected source of infection? No. Patient's initial sepsis screen is negative. Risk Assessment: Do you want to hurt yourself or someone else? Patient reports no desire to harm self or others. Onset of symptoms is unknown. 13:39 Method Of Arrival: Ambulatory bp 13:39 Acuity: BLAYNE 5 bp Triage Assessment: 13:39 General: Appears in no apparent distress. Behavior is calm, cooperative, appropriate bp for age. Pain: Complains of pain in mouth. Historical: - Allergies: 13:38 unknown cardiac medication; bp - PMHx: 13:38 Diabetes - NIDDM; High Cholesterol; Hypertension; bp - PSHx: 13:38 inguinal hernia repair; stent x2; triple bypass; bp - Immunization history:: Adult Immunizations up to date. - Social history:: Smoking status: Patient denies any tobacco usage or history of. Screenin:52 [facility] ED Fall Risk Assessment (Adult) History of falling in the last 3 months, bp including since admission No falls in past 3 months (0 pts). Abuse screen: Denies threats or abuse. Denies injuries from another. Nutritional screening: No deficits noted. Tuberculosis screening: No symptoms or risk factors identified. Vital Signs: 13:39 BP 170 / 87; Pulse 88; Resp 16; Temp 97.7; Pulse Ox 100% ; bp ED Course: 13:29 Patient arrived in ED. ts1 13:36 Yuni Christianson [facility]NP [facility] jh7 13:36 Chase Rossi MD is Attending Physician. jh7 13:39 Arm band placed on. bp 13:40 Triage completed. bp 13:52 Ifeanyi Ashton, RN is Primary Nurse. bp 13:52 Patient has correct armband on for positive identification. bp 13:52 No provider procedures requiring assistance completed. Patient did not have IV access bp during this emergency room visit. Administered Medications: No medications were administered Outcome: 13:43 Discharge ordered by . william 13:52 Discharged to home ambulatory, bp 13:52 Condition: stable 13:52 Discharge instructions given to patient, Instructed on discharge instructions, follow up and referral plans. medication usage, Demonstrated understanding of instructions, follow-up care, medications, Prescriptions given X 1, 13:52 Patient left the ED. bp Signatures: Ifeanyi Ashton, RN RN bp Yuni Christianson, INSURANCE BROKER INSURANCE BROKER 7 Susan [place], PAS PAS ts1
--- NOTE | 2023-02-18 13:44 | EDPHYS ---
Physician Documentation [facility] Name: Vj Yoon Age: 73 yrs Sex: Male : 1950 Arrival Date: 02/18/2023 Time: 13:28 Bed IW6 Private MD: ED Physician Chase Rossi HPI: 02/18 13:39 This 73 yrs old Male presents to ER via Ambulatory with complaints of Mouth Problem, jh7 Mouth Swelling. 13:39 The patient presents with pain, redness. The problem is located in the R anterior jh7 aspect of the roof of the mouth. Onset: The symptoms/episode began/occurred 2 day(s) ago. Associated signs and symptoms: Pertinent positives: pain, redness in area, Pertinent negatives: anorexia, chills, dysphagia, fever, inability to eat, nausea, vomiting. 73-year-old male presents to the ER complaining of mild swelling and redness to the roof of the mouth starting 2 days ago. He reports that the area is tender. Last dental visit 6 months ago. History of diabetes.. Historical: - Allergies: 13:38 unknown cardiac medication; bp - PMHx: 13:38 Diabetes - NIDDM; High Cholesterol; Hypertension; bp - PSHx: 13:38 inguinal hernia repair; stent x2; triple bypass; bp - Immunization history:: Adult Immunizations up to date. - Social history:: Smoking status: Patient denies any tobacco usage or history of. ROS: 13:39 Constitutional: Negative for fever, chills, and weight loss, Eyes: Negative for injury, jh7 pain, redness, and discharge, Neck: Negative for injury, pain, and swelling, Cardiovascular: Negative for chest pain, palpitations, and edema, Respiratory: Negative for shortness of breath, cough, wheezing, and pleuritic chest pain, Abdomen/GI: Negative for abdominal pain, nausea, vomiting, diarrhea, and constipation, Back: Negative for injury and pain, MS/Extremity: Negative for injury and deformity, Skin: Negative for injury, rash, and discoloration, Neuro: Negative for headache, weakness, numbness, tingling, and seizure, 13:39 ENT: Positive for mouth pain, 13:39 All other systems are negative, Exam: 13:39 Constitutional: This is a well developed, well nourished patient who is awake, alert, jh7 and in no acute distress. Head/Face: Normocephalic, atraumatic. Neck: Trachea midline, no thyromegaly or masses palpated, and no cervical lymphadenopathy. Supple, full range of motion without nuchal rigidity, or vertebral point tenderness. No Meningismus. Cardiovascular: Regular rate and rhythm with a normal S1 and S2. No gallops, murmurs, or rubs. Normal PMI, no JVD. No pulse deficits. Respiratory: Lungs have equal breath sounds bilaterally, clear to auscultation and percussion. No rales, rhonchi or wheezes noted. No increased work of breathing, no retractions or nasal flaring. Abdomen/GI: Soft, non-tender, with normal bowel sounds. No distension or tympany. No guarding or rebound. No evidence of tenderness throughout. Back: No spinal tenderness. No costovertebral tenderness. Full range of motion. Skin: Warm, dry with normal turgor. Normal color with no rashes, no lesions, and no evidence of cellulitis. MS/ Extremity: Pulses equal, no cyanosis. Neurovascular intact. Full, normal range of motion. Neuro: Awake and alert, GCS 15, oriented to person, place, time, and situation. Motor strength 5/5 in all extremities. Sensory grossly intact. Normal gait. 13:39 ENT: Mouth: Mild localized swelling and erythema noted to the right anterior aspect of the roof of the mouth. The area is tender to palpation. No induration or drainage noted. No dental abscess., Vital Signs: 13:39 BP 170 / 87; Pulse 88; Resp 16; Temp 97.7; Pulse Ox 100% ; bp MDM: 13:36 Patient medically screened. [facility] 13:42 Differential diagnosis: dental caries, gingivitis, dental abscess, aphthous ulcers, jh7 Cellulitis, localized skin infection. Data reviewed: vital signs, nurses notes. Care significantly affected by the following chronic conditions: Diabetes. Counseling: I had a detailed discussion with the patient and/or guardian regarding the historical points, exam findings, and any diagnostic results supporting the discharge/admit diagnosis, to return to the emergency department if symptoms worsen or persist or if there are any questions or concerns that arise at home. ED course: Likely localized skin infection/inflammation due to a food, or minor trauma. Will prescribe antibiotics due to history of diabetes. No Johan's angina, cellulitis to the floor of the mouth, or any external swelling.. Administered Medications: No medications were administered Disposition: 18:37 Co-signature as Attending Physician, Chase Rossi MD I reviewed the patient's care rn provided by the Advanced Practice Provider and agree with the diagnosis and treatment plan. Disposition Summary: 02/18/23 13:43 Discharge Ordered Notes: Location: Home [facility] Problem: new [facility] Symptoms: are unchanged [facility] Condition: Stable [facility] Diagnosis - Local infection of the skin and subcutaneous tissue, unspecified [facility] Followup: [facility] - With: Private Physician - When: 2 - 3 days - Reason: Recheck today's complaints Discharge Instructions: - Discharge Summary Sheet [facility] - Cellulitis, Adult [facility] Forms: - Medication Reconciliation Form [facility] - Thank You Letter [facility] - Antibiotic Education [facility] - Patient Portal Instructions [facility] - Leadership Thank You Letter [facility] Prescriptions: - Clindamycin HCl 300 mg Oral capsule - take 1 capsule ORAL route every 8 hours for 7 days; 21 capsule; Refills: 0, jh7 Product Selection Permitted Signatures: Chase Rossi MD MD rn Peltier, Brian, RN RN Yuni Romano, FLIGHT TOWER DISPATCHER FLIGHT TOWER DISPATCHER [facility]
[2023-02-18 15:02] VITALS: BP 170/87; TEMP 97.7; O2SAT 100
== END ==
LOC: ER 13:28
DX: L08.9 Local infection of the skin and subcutaneous tissue, unspecified (principal)
CPT/HCPCS: 99283

== ENCOUNTER 2023-03-09 09:57 | Day surgery (SDC) | payer OTHER ==
[2023-03-08 08:33] LABS: Absolute Basophils 0.1 K/uL (0-0.5); Absolute Eosinophils 0.2 K/uL (0-0.5); Absolute Lymphocytes (CBC) 1.5 K/uL (0.7-4.9); Absolute Monocytes 0.6 K/uL (0.1-1.3); Absolute Neutrophil 5.1 K/uL (1.8-8.0); Basophils % 0.7 % (0-1.3); Hematocrit 31.7 % (39.6-49.0); Hemoglobin 10.9 g/dL (13.6-17.9); Lymphocytes % 19.8 % (15.3-44.8); MCHC 34.3 g/dL (32.0-36.0); MCV 87.4 fL (80-100); MPV 6.8 fL (7.6-11.3); Neutrophils % 68.5 % (41.7-73.7); Platelets 285 thou/uL (152-406); RBC Red Blood Cell Count 3.62 M/uL (4.33-5.43)
[2023-03-08 08:37] LABS: PT Prothrombin Time 11.8 SECONDS (9.5-12.5); Protime INR 1.07
--- NOTE | 2023-03-08 08:37 | RAD REPORT ---
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 Hypertension. History of triple bypass COMPARISON: Chest Single View dated 05/12/2022; Chest Pa And Lat (2 Views) dated 01/05/2022; Chest Pa And Lat (2 Views) dated 12/30/2020; Chest Pa And Lat (2 Views) dated 07/02/2020 TECHNIQUE: PA and lateral views of the chest were obtained. FINDINGS: The lungs are clear. Hyperlucency and hyperinflation suggestive of COPD. Heart size is nor mal and central vasculature is within normal limits. Sequelae of CABG again seen. No pleural effusion or pneumothorax seen. No acute bony finding noted. IMPRESSION: No acute cardiopulmonary process.
[2023-03-08 08:41] LABS: Anion Gap 7.4 mEq/L (5.0-15.0); Potassium 4.4 mEq/L (3.5-5.1)
[2023-03-09] MEDS ORDERED: NA CHLORIDE 0.9% 500 ML ONE (10:30)
[2023-03-09] MEDS ORDERED: MIDAZOLAM HCL 2 MG/2 ML INJ ONE (10:50)
[2023-03-09] MEDS ORDERED: LIDOCAINE 1% 20 ML MDV ONE (10:50)
[2023-03-09] MEDS ORDERED: FENTANYL CITR 100 MCG/2 ML ONE (10:50)
[2023-03-09] MEDS ORDERED: HEPA 1000U/500MLS 2,000 UNIT/1,000 ML BAG IV ONE (10:50)
[2023-03-09] MEDS ORDERED: VERAPAMIL HCL 10 MG/4 ML VIAL IV ONE (10:50)
[2023-03-09] MEDS ORDERED: ATROPINE SULF 1 MG/10 ML SYR IV ONE (10:51)
[2023-03-09] MEDS ORDERED: HEPARIN 5000 UNIT/ML 1 ML VIAL ONE (10:51)
[2023-03-09] MEDS ORDERED: HEPARIN 10,000 UNIT/10 ML VIAL IV ONE (10:51)
[2023-03-09] MEDS ORDERED: HEPA 1000U/500MLS 1,000 UNIT/500 ML BAG IV ONE (12:21)
[2023-03-09 17:33] VITALS: BP 143/73; O2SAT 99
--- NOTE | 2023-03-13 17:14 | EKG ---
Test Date: 2023-03-08 Test Time: 09:16:32 Announcer: ANDERSON MEASUREMENT RESULTS: Intervals: Rate: 81 MO: 140 QRSD: 72 QT: 368 QTc: 427 [place]: P: 74 MO: 140 QRS: 102 T: 46 INTERPRETIVE STATEMENTS: Normal sinus rhythm Rightward axis ST abnormality, possible digitalis effect Abnormal ECG Compared to ECG 05/12/2022 00:13:46 Right-axis deviation now present ST (T wave) deviation now present Electronically Signed On 03-13-23 16:58:09 QUICK SKETCH ARTIST by Aroldo El
== END 2023-03-09 17:30 | disposition home or self-care (01) ==
LOC: CCL 09:57
PROVIDERS: ATTEND Internal Medicine
DX: I70.213 Atherosclerosis of native arteries of extremities with intermittent claudication, bilateral legs (principal); T82.856A Stenosis of peripheral vascular stent, initial encounter; I25.10 Atherosclerotic heart disease of native coronary artery without angina pectoris; I65.23 Occlusion and stenosis of bilateral carotid arteries; E11.9 Type 2 diabetes mellitus without complications; I10 Essential (primary) hypertension; E78.5 Hyperlipidemia, unspecified; Z95.1 Presence of aortocoronary bypass graft; Z87.891 Personal history of nicotine dependence; Z79.82 Long term (current) use of aspirin; Z79.02 Long term (current) use of antithrombotics/antiplatelets; Z79.84 Long term (current) use of oral hypoglycemic drugs; Z79.899 Other long term (current) drug therapy; Z88.5 Allergy status to narcotic agent; Z88.8 Allergy status to other drugs, medicaments and biological substances; Z82.49 Family history of ischemic heart disease and other diseases of the circulatory system
CPT/HCPCS: 36200; 36245; 36247; 36415; 71046; 75625; 75716; 76937; 80048; 82947; 85025; 85347; 85610; 85730; 93005; 99152; 99153; C1769; C1893; J0461; J1644; J2001; J2250; J3010; J7040

== ENCOUNTER → 2023-04-06 | Emergency (ER) | payer OTHER ==
[~2023-04-06] MED LIST changes: +NA CHLORIDE 0.9% 1,000 ML ONE
[2023-04-06 08:36] LABS: Absolute Lymphocytes (CBC) 1.4 K/uL (0.7-4.9); Hematocrit 32.9 % (39.6-49.0); Lymphocytes % 18.4 % (15.3-44.8); MCV 86.5 fL (80-100); MPV 6.4 fL (7.6-11.3); Platelets 232 thou/uL (152-406)
[2023-04-06 08:42] LABS: Protime INR 1.03
[2023-04-06 09:02] LABS: ALT/SGPT 81 U/L (16-61); AST/SGOT 35 U/L (15-37); Albumin 3.9 g/dL (3.4-5.0); Alkaline Phosphatase 105 U/L (45-117); BUN Blood Urea Nitrogen 31 mg/dL (7-18); Bicarbonate 19 mEq/L (21-32); Bilirubin Total 0.3 mg/dL (0.2-1.0); Glomerular Filtration Rate 33 ml/min (=/>90); Glucose Level 153 mg/dL (74-106); Lipase 67 U/L (13-75); Magnesium 2.2 mg/dL (1.6-2.4); NT PRO-BNP 148 pg/mL (<125); Potassium 3.7 mEq/L (3.5-5.1); Protein, Total 7.6 g/dL (6.4-8.2); Sodium Level 142 mEq/L (136-145); Troponin High Sensitivity 7.1 pg/mL (<58.9)
[2023-04-06 09:03] LABS: Bilirubin Direct < 0.1 mg/dL (0-0.2); Bilirubin Indirect, Calculated ND mg/dL (0.2-0.8)
--- NOTE | 2023-04-06 09:29 | RAD REPORT ---
EXAM DESCRIPTION: [place] Single View04/06/2023 8:41 am CLINICAL HISTORY: Palpitations COMPARISON: February 2023 FINDINGS: Cystic changes right apex unchanged. Lungs are hyperaerated. Post surgical changes involve the chest all The lungs appear clear of acute infiltrate. The heart is normal size IMPRESSION: No acute abnormalities displayed
--- NOTE | 2023-04-06 10:56 | ER ---
Nurse's Notes [facility] Name: Vj Yoon Age: 73 yrs Sex: Male : 1950 Arrival Date: 04/06/2023 Time: 08:08 Bed 6 Private MD: Tk Cox Diagnosis: Palpitations;Adverse effect of unspecified drugs, medicaments and biological substances;Unspecified kidney failure-chronic Presentation: 04/06 08:22 Chief complaint: Patient states: heart feels like it's racing , started last night, iw worse this morning, he started a new med (cilostazol) a week ago and one of the side effects is palpitations. Coronavirus screen: At this time, the client does not indicate any symptoms associated with coronavirus-19. Ebola Screen: Patient negative for fever greater than or equal to 101.5 degrees Fahrenheit, and additional compatible Ebola Virus Disease symptoms Patient denies exposure to infectious person. Patient denies travel to an Ebola-affected area in the 21 days before illness onset. No symptoms or risks identified at this time. Initial Sepsis Screen: Does the patient meet any 2 criteria? No. Patient's initial sepsis screen is negative. Does the patient have a suspected source of infection? No. Patient's initial sepsis screen is negative. Risk Assessment: Do you want to hurt yourself or someone else? Patient reports no desire to harm self or others. Onset of symptoms was April 06, 2023. 08:22 Method Of Arrival: Ambulatory iw 08:22 Acuity: BLAYNE 3 iw Historical: - Allergies: 08:25 JASMEET INHIBITORS; iw - Home Meds: 08:25 Farxiga 5 mg oral tablet daily [Active]; pentoxifylline 400 mg oral tablet, extended iw release 2 times per day [Active]; metoprolol tartrate 50 mg Oral tablet 2 times per day [Active]; clopidogrel 75 mg oral tablet daily [Active]; atorvastatin 40 mg oral tablet daily [Active]; amlodipine 10 mg tablet daily [Active]; tamsulosin 0.4 mg oral capsule daily [Active]; temazepam 30 mg Oral capsule every day at bedtime [Active]; aspirin 81 mg Oral capsule daily [Active]; - PMHx: 08:25 Diabetes - NIDDM; High Cholesterol; Hypertension; iw - PSHx: 08:25 inguinal hernia repair; stent x2; triple bypass; iw - Immunization history:: Adult Immunizations up to date. - Social history:: Smoking status: Patient/guardian denies using tobacco, but has a distant history of tobacco abuse. Screenin:24 [facility] ED Fall Risk Assessment (Adult) History of falling in the last 3 months, kc6 including since admission No falls in past 3 months (0 pts) Confusion or Disorientation No (0 pts) Intoxicated or Sedated No (0 pts) Impaired Gait No (0 pts) Mobility Assist Device Used No (0 pt) Altered Elimination No (0 pt) Score/Fall Risk Level 0 - 2 = Low Risk. Abuse screen: Denies threats or abuse. Denies injuries from another. Nutritional screening: No deficits noted. Tuberculosis screening: No symptoms or risk factors identified. Assessment: 09:10 General: Appears in no apparent distress. comfortable, well groomed, well developed, kc6 Behavior is calm, cooperative, appropriate for age. Pain: Denies pain. Neuro: Level of Consciousness is awake, alert, obeys commands, Oriented to person, place, time, situation, Appropriate for age. Cardiovascular: Reports palpitations, Heart tones S1 S2 present Capillary refill < 3 seconds Rhythm is sinus rhythm. Respiratory: Airway is patent Trachea midline Respiratory effort is even, unlabored, Respiratory pattern is regular, symmetrical. GI: No signs and/or symptoms were reported involving the gastrointestinal system. : No signs and/or symptoms were reported regarding the genitourinary system. EENT: No signs and/or symptoms were reported regarding the EENT system. Derm: No signs and/or symptoms reported regarding the dermatologic system. Skin is intact, is healthy with good turgor, Skin is pink, warm \T\ dry. Musculoskeletal: No signs and/or symptoms reported regarding the musculoskeletal system. Circulation, motion, and sensation intact. Capillary refill < 3 seconds, Range of motion: intact in all extremities. 10:06 Reassessment: Patient appears in no apparent distress at this time. No changes from kc6 previously documented assessment. Patient and/or family updated on plan of care and expected duration. Pain level reassessed. Patient is alert, oriented x 3, equal unlabored respirations, skin warm/dry/pink. Vital Signs: 09:09 BP 138 / 71; Pulse 87; Resp 20 S; Pulse Ox 99% on R/A; kc6 10:06 BP 147 / 72; Pulse 80; Resp 16 S; Pulse Ox 99% on R/A; kc6 ED Course: 08:09 Patient arrived in ED. rg4 08:09 Tk Cox MD is Private Physician. rg4 08:13 Sin Santana MD is Attending Physician. apoorva 08:24 Zahra Singleton RN is Primary Nurse. kc6 08:24 Inserted saline lock: 18 gauge in right forearm, using aseptic technique. Blood kc6 collected. Patient maintains SpO2 saturation greater than 95% on room air. 08:25 Triage completed. iw 08:25 Patient has correct armband on for positive identification. Placed in gown. Bed in low kc6 position. Call light in reach. Side rails up X2. Client placed on continuous cardiac and pulse oximetry monitoring. NIBP monitoring applied. residential monitor on. 08:43 XRAY Chest (1 view) In Process Unspecified. EDMS 09:11 Arm band placed on. kc6 10:54 Tk Cox MD is Referral Physician. [facility] 10:54 Aroldo El MD is Referral Physician. [facility] 11:54 No provider procedures requiring assistance completed. IV discontinued, intact, ld1 bleeding controlled, No redness/swelling at site. Administered Medications: 08:42 Drug: NS 0.9% IV 1000 ml IV at 125 ml/hr continuous Route: IV; Rate: 125 ml/hr; Site: kc6 right forearm; 10:47 Drug: NS 0.9% IV 500 ml IV at bolus once Route: IV; Rate: bolus; Site: right forearm; kc6 Medication: 11:54 VIS not applicable for this client. ld1 Outcome: 10:55 Discharge ordered by . [facility] 11:54 Discharged to home ambulatory, with family, ld1 11:54 Condition: stable 11:54 Discharge instructions given to patient, Instructed on discharge instructions, follow up and referral plans. Demonstrated understanding of instructions, follow-up care, 11:54 Patient left the ED. ld1 Signatures: Dispatcher [employer] EDTN Sin Santana MD MD cha Williams, Irene, RN RN iw Garcia, Rubi rg4 Kay Mead RN RN ld1 Zahra Singleton RN RN [facility]
--- NOTE | 2023-04-06 10:56 | EDPHYS ---
Physician Documentation [facility] Name: Vj Yoon Age: 73 yrs Sex: Male : 1950 Arrival Date: 04/06/2023 Time: 08:08 Bed 6 Private MD: Tk Cox ED Physician Sin Santana HPI: 04/06 10:43 This 73 yrs old Male presents to ER via Ambulatory with complaints of apoorva Palpitations. 10:43 The patient presents with a history of heart racing. Context: The symptoms occur with apoorva light activity. Onset: The symptoms/episode began/occurred just prior to arrival. Duration: The patient or guardian reports a single episode, that is now resolved. Modifying factors: The symptoms are aggravated by nothing. The symptoms are alleviated by nothing. Associated signs and symptoms: The patient has no apparent associated signs or symptoms. Severity of symptoms: At their worst the symptoms were mild in the emergency department the symptoms have resolved and did so just prior to arrival. The patient has not experienced similar symptoms in the past. Historical: - Allergies: 08:25 JASMEET INHIBITORS; iw - Home Meds: 08:25 Farxiga 5 mg oral tablet daily [Active]; pentoxifylline 400 mg oral tablet, extended iw release 2 times per day [Active]; metoprolol tartrate 50 mg Oral tablet 2 times per day [Active]; clopidogrel 75 mg oral tablet daily [Active]; atorvastatin 40 mg oral tablet daily [Active]; amlodipine 10 mg tablet daily [Active]; tamsulosin 0.4 mg oral capsule daily [Active]; temazepam 30 mg Oral capsule every day at bedtime [Active]; aspirin 81 mg Oral capsule daily [Active]; - PMHx: 08:25 Diabetes - NIDDM; High Cholesterol; Hypertension; iw - PSHx: 08:25 inguinal hernia repair; stent x2; triple bypass; iw - Immunization history:: Adult Immunizations up to date. - Social history:: Smoking status: Patient/guardian denies using tobacco, but has a distant history of tobacco abuse. ROS: 10:44 Constitutional: Negative for fever, chills, and weight loss, Eyes: Negative for injury, apoorva pain, redness, and discharge, ENT: Negative for injury, pain, and discharge, Neck: Negative for injury, pain, and swelling, Respiratory: Negative for shortness of breath, cough, wheezing, and pleuritic chest pain, Abdomen/GI: Negative for abdominal pain, nausea, vomiting, diarrhea, and constipation, Back: Negative for injury and pain, : Negative for injury, bleeding, discharge, and swelling, MS/Extremity: Negative for injury and deformity, Skin: Negative for injury, rash, and discoloration, Neuro: Negative for headache, weakness, numbness, tingling, and seizure, Psych: Negative for depression, anxiety, suicide ideation, homicidal ideation, and hallucinations, Allergy/Immunology: Negative for hives, rash, and allergies, Endocrine: Negative for neck swelling, polydipsia, polyuria, polyphagia, and marked weight changes, Hematologic/Lymphatic: Negative for swollen nodes, abnormal bleeding, and unusual bruising, 10:44 Cardiovascular: Positive for palpitations, Exam: 10:44 Constitutional: This is a well developed, well nourished patient who is awake, alert, apoorva and in no acute distress. Head/Face: Normocephalic, atraumatic. Eyes: Pupils equal round and reactive to light, extra-ocular motions intact. Lids and lashes normal. Conjunctiva and sclera are non-icteric and not injected. Cornea within normal limits. Periorbital areas with no swelling, redness, or edema. ENT: Nares patent. No nasal discharge, no septal abnormalities noted. Tympanic membranes are normal and external auditory canals are clear. Oropharynx with no redness, swelling, or masses, exudates, or evidence of obstruction, uvula midline. Mucous membranes moist. Neck: Trachea midline, no thyromegaly or masses palpated, and no cervical lymphadenopathy. Supple, full range of motion without nuchal rigidity, or vertebral point tenderness. No Meningismus. Chest/axilla: Normal chest wall appearance and motion. Nontender with no deformity. No lesions are appreciated. Respiratory: Lungs have equal breath sounds bilaterally, clear to auscultation and percussion. No rales, rhonchi or wheezes noted. No increased work of breathing, no retractions or nasal flaring. Abdomen/GI: Soft, non-tender, with normal bowel sounds. No distension or tympany. No guarding or rebound. No evidence of tenderness throughout. Back: No spinal tenderness. No costovertebral tenderness. Full range of motion. Male : Normal genitalia with no discharge or lesions. Skin: Warm, dry with normal turgor. Normal color with no rashes, no lesions, and no evidence of cellulitis. MS/ Extremity: Pulses equal, no cyanosis. Neurovascular intact. Full, normal range of motion. Neuro: Awake and alert, GCS 15, oriented to person, place, time, and situation. Cranial nerves II-XII grossly intact. Motor strength 5/5 in all extremities. Sensory grossly intact. Cerebellar exam normal. Normal gait. Psych: Awake, alert, with orientation to person, place and time. Behavior, mood, and affect are within normal limits. 10:44 Cardiovascular: Rate: normal, tachycardic, Rhythm: regular, Pulses: no pulse deficits are appreciated, Heart sounds: normal, Edema: is not appreciated, JVD: is not appreciated, 10:44 ECG was reviewed by the Attending Physician. Vital Signs: 09:09 BP 138 / 71; Pulse 87; Resp 20 S; Pulse Ox 99% on R/A; kc6 10:06 BP 147 / 72; Pulse 80; Resp 16 S; Pulse Ox 99% on R/A; kc6 MDM: 08:13 Patient medically screened. apoorva 10:52 SALTY Risk Score: 1 - Patient's age is greater or equal to 65, 1 - 3 or more CAD risk apoorva factors, 1 - Known CAD, 1 - ASA use in past 7 days. Differential diagnosis: arrythmia, dehydration. Data reviewed: vital signs, nurses notes, lab test result(s), EKG, radiologic studies, plain films. Consideration of Admission/Observation Escalation of care including admission/observation considered. I considered the following discharge prescriptions or medication management in the emergency department Medications were administered in the Emergency Department. See MAR. Independent interpretation of the following test(s) in the Emergency Department EKG: See my EKG interpretation above. Test considered but Not performed: Ultrasound no renal usg. 04/06 08:18 Order name: Basic Metabolic Panel; Complete Time: 10:04 apoorva 04/06 08:18 Order name: CBC with Diff; Complete Time: 10:04/06 08:18 Order name: LFT's; Complete Time: 10:04 04/06 08:18 Order name: Magnesium; Complete Time: 10:04/06 08:18 Order name: NT PRO-BNP; Complete Time: 10:04/06 08:18 Order name: PT-INR; Complete Time: 10:04/06 08:18 Order name: Troponin HS; Complete Time: 10:04/06 08:18 Order name: TSH; Complete Time: 10:04/06 08:18 Order name: Lipase; Complete Time: 10:04/06 08:18 Order name: XRAY Chest (1 view); Complete Time: 10:04/06 08:18 Order name: EKG; Complete Time: 08:04/06 08:18 Order name: Cardiac monitoring; Complete Time: 08:04/06 08:18 Order name: EKG - Nurse/Tech; Complete Time: 04/06 08:18 Order name: IV Saline Lock; Complete Time: 04/06 08:18 Order name: Labs collected and sent; Complete Time: 08:24 04/06 08:18 Order name: O2 Per Protocol; Complete Time: 04/06 08:18 Order name: O2 Sat Monitoring; Complete Time: : [facility] EC:44 Rate is 99 beats/min. Rhythm is regular. QRS Powers is Normal. GA interval is normal. QRS apoorva interval is normal. QT interval is normal. No Q waves. T waves are Normal. No ST changes noted. Clinical impression: NSR w/ Non-specific ST/T Changes and No evidence of ischemia. Interpreted by me. Reviewed by me. Administered Medications: 08:42 Drug: NS 0.9% IV 1000 ml IV at 125 ml/hr continuous Route: IV; Rate: 125 ml/hr; Site: kc6 right forearm; 10:47 Drug: NS 0.9% IV 500 ml IV at bolus once Route: IV; Rate: bolus; Site: right forearm; kc6 Disposition Summary: 04/06/23 10:55 Discharge Ordered Notes: Location: Home apoorva Problem: new apoorva Symptoms: have improved apoorva Condition: Stable apoorva Diagnosis - Palpitations apoorva - Adverse effect of unspecified drugs, medicaments and biological substances apoorva - Unspecified kidney failure - chronic apoorva Followup: apoorva - With: Tk Cox MD - When: 2 - 3 days - Reason: Recheck today's complaints, Continuance of care, Re-evaluation by your physician Followup: apoorva - With: Aroldo El MD - When: 2 - 3 days - Reason: Recheck today's complaints, Continuance of care, Re-evaluation by your physician Discharge Instructions: - Discharge Summary Sheet apoorva - Palpitations apoorva - Palpitations, [id number] apoorva - Chronic Kidney Disease, Adult, [id number] apoorva - Sinus Tachycardia apoorva Forms: - Medication Reconciliation Form apoorva - Thank You Letter apoorva - Antibiotic Education apoorva - Prescription Opioid Use apoorva - Patient Portal Instructions apoorva - Leadership Thank You Letter apoorva Signatures: Dispatcher [employer] Sin Serrato MD MD cha Williams, Irene, RN RN Zahra Harding RN RN kc6
[2023-04-06 12:16] VITALS: BP 147/72; O2SAT 99
--- NOTE | 2023-04-10 11:08 | EKG ---
Test Date: 2023-04-06 Test Time: 08:20:11 Reading Teacher: MIL MEASUREMENT RESULTS: Intervals: Rate: 99 FL: 146 QRSD: 76 QT: 352 QTc: 451 [place]: P: 52 FL: 146 QRS: 33 T: 12 INTERPRETIVE STATEMENTS: Normal sinus rhythm Possible Left atrial enlargement Nonspecific ST and T wave abnormality Abnormal ECG Compared to ECG 03/08/2023 09:16:32 Right-axis deviation no longer present ST (T wave) deviation still present Electronically Signed On 04-10-23 11:00:57 [employer] by Heladio Burciaga
== END ==
LOC: ER 08:08
DX: R00.2 Palpitations (principal); T50.995A Adverse effect of other drugs, medicaments and biological substances, initial encounter; E11.22 Type 2 diabetes mellitus with diabetic chronic kidney disease; I12.9 Hypertensive chronic kidney disease with stage 1 through stage 4 chronic kidney disease, or unspecified chronic kidney disease; N18.9 Chronic kidney disease, unspecified; Z91.048 Other nonmedicinal substance allergy status; Z79.82 Long term (current) use of aspirin; Z95.1 Presence of aortocoronary bypass graft
CPT/HCPCS: 85025; 80048; 36415; 83735; 85610; 80076; 84443; 84484; 83690; 83880; 71045; 99285; J7040; J7030; 93005

== ENCOUNTER 2024-12-02 07:00 | Day surgery (SDC) | payer OTHER ==
[2024-11-29 09:56] LABS: Absolute Lymphocytes (CBC) 1.3 K/uL (0.7-4.9); Hematocrit 43.0 % (39.6-49.0); Hemoglobin 15.0 g/dL (13.6-17.9); MCH 32.0 pg (27.0-35.0); MCHC 34.8 g/dL (32.0-36.0); MCV 91.9 fL (80-100); MPV 7.0 fL (7.6-11.3); Nucleated RBC Absolute Count 0.0 (0-0); Nucleated Red Blood Cells % 0.1 % (0-0); RBC Red Blood Cell Count 4.68 M/uL (4.33-5.43); White Blood Count 6.60 thou/uL (4.3-10.9)
[2024-11-29 10:12] LABS: Anion Gap 9.6 mEq/L (5.0-15.0); BUN Blood Urea Nitrogen 27.0 mg/dL (7-18); Glucose Level 140.0 mg/dL (74-106); PT Prothrombin Time 13.2 SECONDS (10-13.0); PTT, Activated Partial Thromb 27.5 SECONDS (27.2-37.4); Potassium 4.6 mEq/L (3.5-5.1); Protime INR 1.17
--- NOTE | 2024-11-29 10:18 | RAD REPORT ---
EXAM: Chest Pa And Lat (2 Views) HISTORY: 74 years Male pre procedure COMPARISON: 2023 FINDINGS: LUNGS/PLEURA: The lungs are clear. No pleural effusions or pneumothorax. No pulmonary edema. CARDIAC/MEDIASTINUM: The cardiac silhouette is within normal limits. UPPER ABDOMEN: No significant abnormality. BONES: Sternotomy. No acute abnormality. LINES/TUBES/OTHER: N/A IMPRESSION: No evidence of acute cardiopulmonary disease.
[2024-12-02 07:19] VITALS: TEMP 97.9
[2024-12-02] MEDS ORDERED: LIDOCAINE 1% 20 ML MDV ONE (07:23)
[2024-12-02] MEDS ORDERED: HEPARIN 10,000 UNIT/10 ML VIAL IV ONE (07:23)
[2024-12-02] MEDS ORDERED: HEPA 1000U/500MLS 2,000 UNIT/1,000 ML BAG IV ONE (07:23)
[2024-12-02] MEDS ORDERED: HEPARIN 5000 UNIT/ML 1 ML VIAL ONE (07:24)
[2024-12-02] MEDS ORDERED: CLOPIDOGREL 75 MG TABLET ONE (07:24)
[2024-12-02] MEDS ORDERED: ATROPINE SULF 1 MG/10 ML SYR IV ONE (07:24)
[2024-12-02] MEDS ORDERED: NA CHLORIDE 0.9% 500 ML ONE (07:24)
[2024-12-02] MEDS ORDERED: ASPIRIN 81 MG CHEWABLE TABLET ONE (07:24)
[2024-12-02] MEDS ORDERED: NITROGLYCERIN/D5W 50 MG/250 ML BTL IV ONE (07:25)
[2024-12-02] MEDS ORDERED: MIDAZOLAM HCL 2 MG/2 ML INJ ONE (07:25)
[2024-12-02] MEDS ORDERED: ASPIRIN 325 MG TAB ONE (07:25)
[2024-12-02] MEDS ORDERED: TICAGRELOR 90 MG TABLET PO ONE (07:25)
[2024-12-02] MEDS ORDERED: FENTANYL CITR 100 MCG/2 ML ONE (07:25)
[2024-12-02 12:00] VITALS: BP 149/79; O2SAT 99
--- NOTE | 2024-12-02 19:11 | OP ---
Date of Procedure: 12/02/2024 Surgeon: Heladio Burciaga Procedure Performed: Selective coronary angiogram of bypass graft. Indication For Procedure: The patient with past medical history of CAD, status post CABG, had an abn ormal stress test. Complications: None. Estimated Blood Loss: Less than 50 cc. Access: Left common femoral artery, closed by Mynx. Description Of Procedure: After risks, benefits, and alternatives were explained to the patient, the patient agreed to proceed with procedure and signed informed consent. The patient was brought back to the director of labor relations, prepped and draped in sterile fashion. Time-out was performed. Sedation was admini stered. Left common femoral artery access was obtained using ultrasound-guided micropuncture technAxtria ue. JL4 catheter was advanced over a J-wire to the aortic root. Selective angiogram of the left cor onary system was done using that catheter. That catheter was later exchanged with a JR4 catheter for selective angiogram of the right coronary systems and SVG to PDA and SVG to OM2 graft, which was lat er pulled back to the subclavian artery, exchanged with an SHORTY catheter for selective angiogram of th e BENZ to the LAD. At the end of procedure, catheter was removed over a J-wire. Sheath was removed. Mynx was applied. Hemostasis achieved and the patient was moved back to recovery in stable conditi on. Findings: 1. Left main, patent. 2. LAD, mid occluded. 3. Left circ, gives large OM that got a stent from the circ into the OM with diffuse maybe 30% ISR. 4. RCA, dominant artery with mid stent that has 99% ISR and then distally diffuse disease and continu e as RPDA and RPLV give branches before that. Grafts: 1. BENZ to LAD is patent, mid to distal LAD got maybe 40% to 50% disease, too distal for intervention . 2. SVG to OM is occluded. 3. SVG to a branch of the RPDA is patent and that back flow into the [place] RCA and the RPDA and RPLV . Assessment: 1. Significant [place] CAD with significant ISR of the RCA stent, but there is a patent SVG graft to t he RPDA. 2. Patent BENZ to LAD and patent SVG to RPDA branch that fills into the RCA with occluded SVG to OM. Plan: To continue aggressive medical management. [place] Voice ID: [id number] Report ID: [id number]
== END 2024-12-02 10:52 | disposition home health service (06) ==
LOC: CCL 07:00
PROVIDERS: ATTEND Internal Medicine Interventional Cardiology
DX: I25.10 Atherosclerotic heart disease of native coronary artery without angina pectoris (principal); I25.810 Atherosclerosis of coronary artery bypass graft(s) without angina pectoris; T82.855A Stenosis of coronary artery stent, initial encounter; I65.23 Occlusion and stenosis of bilateral carotid arteries; I70.223 Atherosclerosis of native arteries of extremities with rest pain, bilateral legs; I10 Essential (primary) hypertension; E11.9 Type 2 diabetes mellitus without complications; E78.5 Hyperlipidemia, unspecified; Z86.73 Personal history of transient ischemic attack (TIA), and cerebral infarction without residual deficits; Z87.891 Personal history of nicotine dependence; Z79.02 Long term (current) use of antithrombotics/antiplatelets; Z79.82 Long term (current) use of aspirin; Z79.899 Other long term (current) drug therapy; Z82.49 Family history of ischemic heart disease and other diseases of the circulatory system
CPT/HCPCS: 93005; 85025; 80048; 36415; 85610; 82947; 85730; 71046; 93455; 76937; C1893; Q9966; J1644 ×2; J2003; J2250; J3010; J7040; C1760; 99152; 99153; J0461